=== PATIENT | female | born 1965 | race Caucasian/White ===

== ENCOUNTER 2018-01-14 08:06 | Inpatient (IN) | payer BC ==
[2018-01-14] VITALS (7 sets, daily range): BP systolic 104–135; BP diastolic 46–64; PULSE 72–93; RESP 14–20; TEMP 96.9–97.9; O2SAT 95–100
[~2018-01-14] VITALS: Ht 167.6 cm; Wt 70.7 kg
[2018-01-14] MEDS ORDERED: SODIUM CHLOR 0.9% 1000 ML INJ 1,000 ML IV SCH (08:36)
--- NOTE | 2018-01-14 08:42 | PD ---
HPI Chief Complaint: abdominal pain Time Seen by Provider: 08:18 Travel History International Travel<30 days: No Contact w/Intl Traveler<30days: No History of Present Illness HPI Patient is a 52-year-old female with history of muscular dystrophy, anxiety as well as PTSD who presents the emergency room with complaints of nausea, vomiting , diarrhea and abdominal pain. Patient reports that she began not feeling well on Saturday, reports that she initially had nausea with vomiting. Patient reports that yesterday, she developed diarrhea. Patient reports that she has had multiple episodes of diarrhea all day. Patient reports that she has not been able to stop her nausea, vomiting and diarrhea. Patient reports that she is having moderate to diffuse abdominal pain. Reports that abdominal pain is nonspecific, reports that nothing is making her pain better or worse. Patient denies any recent antibiotics. reports that she is here visiting from [place]. denies any sick contacts. Reports that she did not eat anything abnormal from her baseline. Patient reports that she is extremely anxious at this time, reports that when she gets upset, she can stop her vomiting. Patient requests some anxiolytics as well as something for nausea and pain. PFSH Past Medical History Narrative Medical Patient with history of PTSD, muscular dystrophy Depression: Yes Past Surgical History Narrative Surgical Patient with history of sphincterotomy, hysterectomy, breast augmentation Social History Alcohol Use: No Tobacco Use: No Substance Use: No Allergies-Medications (Allergen,Severity, Reaction): Coded Allergies: aspirin (Verified Adverse Reaction, Intermediate, Nausea, 01/14/18) Reported Meds & Prescriptions Reported Meds & Active Scripts Active Reported Meloxicam 7.5 Mg Tab 7.5 Mg PO DAILY PRN Flexeril (Cyclobenzaprine HCl) 5 Mg Tab 5 Mg PO BID PRN Prazosin (Prazosin HCl) 2 Mg Cap 2 Mg PO HS PRN Wellbutrin Xl 24 HR (Bupropion HCl) 150 Mg Tab 150 Mg PO DAILY Estradiol 1 Mg Tab 2 Mg PO DAILY Duloxetine DR (Duloxetine HCl) 60 Mg Capdr 60 Mg PO DAILY Review of Systems General / Constitutional: No: Fever Eyes: No: Visual changes HENT: No: Headaches Cardiovascular: No: Chest Pain or Discomfort Respiratory: No: Shortness of Breath Gastrointestinal: Positive: Nausea, Vomiting, Diarrhea, Abdominal Pain Genitourinary: No: Dysuria Musculoskeletal: No: Pain Skin: No Rash Neurologic: No: Weakness Psychiatric: Positive: Anxiety, No: Depression Endocrine: No: Polydipsia Hematologic/Lymphatic: No: Easy Bruising Physical Exam Narrative GENERAL: Moderate distress SKIN: Focused skin assessment warm/dry. HEAD: Atraumatic. Normocephalic. EYES: Pupils equal and round. No scleral icterus. No injection or drainage. ENT: No nasal bleeding or discharge. Mucous membranes pink and moist. NECK: Trachea midline. No JVD. CARDIOVASCULAR: Regular rate and rhythm. No murmur appreciated. RESPIRATORY: No accessory muscle use. Clear to auscultation. Breath sounds equal bilaterally. GASTROINTESTINAL: Abdomen soft, diffuse tenderness, no peritoneal signs, nondistended. Hepatic and splenic margins not palpable. MUSCULOSKELETAL: No obvious deformities. No clubbing. No cyanosis. No edema. NEUROLOGICAL: Awake and alert. No obvious cranial nerve deficits. Motor grossly within normal limits. Normal speech. PSYCHIATRIC: Anxious mood and affect; insight and judgment normal. Data Data Last Documented VS Vital Signs Date Time Temp Pulse Resp B/P (MAP) Pulse Ox O2 Delivery O2 Flow Rate FiO2 01/14/18 09:35 84 14 135/61 (85) 100 Room Air 01/14/18 08:09 97.5 Orders Orders Complete Blood Count With Diff (01/14/18 08:23) Comprehensive Metabolic Panel (01/14/18 08:23) Lipase (01/14/18 08:23) Prothrombin Time / Inr (Pt) (01/14/18 08:23) Act Partial Throm Time (Ptt) (01/14/18 08:23) Urinalysis - C+S If Indicated (01/14/18 08:23) Ct Abd/Pel W Iv Contrast(Rout) (01/14/18 08:23) Iv Access Insert/Monitor (01/14/18 08:23) Ecg Monitoring (01/14/18 08:23) Oximetry (01/14/18 08:23) NPO (01/14/18 08:23) Chest, Single Ap (01/14/18 08:23) Morphine Inj (Morphine Inj) (01/14/18 08:45) Ondansetron Inj (Zofran Inj) (01/14/18 08:45) Sodium Chlor 0.9% 1000 Ml Inj (Ns 1000 M (01/14/18 08:36) Sodium Chloride 0.9% Flush (Ns Flush) (01/14/18 08:45) Lorazepam Inj (Ativan Inj) (01/14/18 08:45) Iohexol 350 Inj (Omnipaque 350 Inj) (01/14/18 09:30) Labs Laboratory Tests Test 01/14/18 08:30 White Blood Count 13.7 TH/MM3 Red Blood Count 4.67 MIL/MM3 Hemoglobin 14.8 GM/DL Hematocrit 42.2 % Mean Corpuscular Volume 90.4 FL Mean Corpuscular Hemoglobin 31.6 PG Mean Corpuscular Hemoglobin Concent 35.0 % Red Cell Distribution Width 13.8 % Platelet Count 297 TH/MM3 Mean Platelet Volume 8.8 FL Neutrophils (%) (Auto) 75.5 % Lymphocytes (%) (Auto) 12.3 % Monocytes (%) (Auto) 7.5 % Eosinophils (%) (Auto) 0.9 % Basophils (%) (Auto) 3.8 % Neutrophils # (Auto) 10.4 TH/MM3 Lymphocytes # (Auto) 1.7 TH/MM3 Monocytes # (Auto) 1.0 TH/MM3 Eosinophils # (Auto) 0.1 TH/MM3 Basophils # (Auto) 0.5 TH/MM3 CBC Comment DIFF FINAL Differential Comment Prothrombin Time 9.8 SEC Prothromb Time International Ratio 1.0 RATIO Activated Partial Thromboplast Time 25.8 SEC Blood Urea Nitrogen 19 MG/DL Creatinine 0.70 MG/DL Random Glucose 120 MG/DL Total Protein 8.6 GM/DL Albumin 4.2 GM/DL Calcium Level 10.1 MG/DL Alkaline Phosphatase 116 U/L Aspartate Amino Transf (AST/SGOT) 27 U/L Alanine Aminotransferase (ALT/SGPT) 71 U/L Total Bilirubin 0.5 MG/DL Sodium Level 136 MEQ/L Potassium Level 4.1 MEQ/L Chloride Level 100 MEQ/L Carbon Dioxide Level 30.7 MEQ/L Anion Gap 5 MEQ/L Estimat Glomerular Filtration Rate 88 ML/MIN Lipase 158 U/L [facility] Medical Decision Making Medical Screen Exam Complete: Yes Emergency Medical Condition: Yes Medical Record Reviewed: Yes Interpretation(s) Vital Signs Date Time Temp Pulse Resp B/P (MAP) Pulse Ox O2 Delivery O2 Flow Rate FiO2 01/14/18 08:09 97.5 72 17 114/59 (77) 100 Room Air Differential Diagnosis Gastritis, gastroenteritis, cholecystitis, appendicitis, colitis, electrolyte abnormality Narrative Course 52-year-old female who presents the emergency room with complaints of nausea, vomiting, abdominal pain which has been ongoing since Saturday. During the course of the patients emergency department visit, the patients history, examination, and differential diagnosis were reviewed with the patient. The patient was placed on a quality assurance monitor with oximetry and frequent blood pressure monitoring. The patient had an IV access obtained and blood work sent for analysis. The patient was initially provided IV fluids, IV Zofran, IV morphine for pain, Ativan for anxiety. The patients laboratory studies were reviewed and remarkable for CBC & BMP Diagram 01/14/18 08:30 Total Protein 8.6 H, Albumin 4.2, Calcium Level 10.1, Alkaline Phosphatase 116, Aspartate Amino Transf (AST/SGOT) 27, Alanine Aminotransferase (ALT/SGPT) 71 H, Total Bilirubin 0.5 0930: patient re-evaluated, patient reports that she is feeling much better at this time. Patient no longer nauseous and no longer vomiting. Abdomen was reevaluated, patient has increased tenderness to the right lower quadrant concerning for appendicitis. CT of the abdomen pelvis currently pending. Radiology studies were reviewed and remarkable for: Last Impressions Chest X-Ray 01/14/18822 Signed Impressions: Service Date/Time: Sunday, January 14, 2018 08:40 - CONCLUSION: 1. Increased lucency below the left hemidiaphragm may reflect air in the stomach. No definite free air on the right. Recommend dedicated upright view of the abdomen or CT examination if there is continued clinical concern. 2. No acute cardiopulmonary disease Forrest Borges MD Abdomen/Pelvis CT 01/14/18822 Signed Impressions: Service Date/Time: Sunday, January 14, 2018 09:21 - CONCLUSION: Dilation of the proximal small bowel with apparent transition in the right midabdomen. In the appropriate clinical setting, findings are characteristic of a partial small bowel obstruction. Irineo Orozco MD Patient with dilation of the proximal small bowel with apparent transition in the right midabdomen concerning for partial small bowel obstruction. Patient reports that she has been having abdominal issues for many years, reports that she either is constipated or has loose stools. Patient is not sure when she has last formed stools. 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 Last colonscopy was when she was 49 years old 0 she had 3 polyps removed at that time. Reports only history of hysterectomy. Plan to have patient admitted to the hospital for IV fluid hydration and for serial abdominal exams. Patient is agreeable to admission at this time. Case reviewed with Dr. Kirk who accepts pt to service Diagnosis Primary Impression: Partial small bowel obstruction Admitting Information Admitting Physician Requests: Admit Amalia Piña DO January 14, 2018 08:42
[2018-01-14 08:44] LABS: AUTOMATED NEUTROPHIL # 10.4 TH/MM3 (1.8-7.7); BASOPHIL # 0.5 TH/MM3 (0-0.2); BASOPHIL % 3.8 % (0.0-2.0); EOSINOPHIL # 0.1 TH/MM3 (0-0.4); EOSINOPHIL % 0.9 % (0.0-4.0); HEMATOCRIT 42.2 % (35.0-46.0); HEMOGLOBIN 14.8 GM/DL (11.6-15.3); LYMPH % 12.3 % (9.0-44.0); LYMPHOCYTE # 1.7 TH/MM3 (1.0-4.8); MEAN CELL VOLUME 90.4 FL (80.0-100.0); MEAN CORPUSCULAR HEMOGLOBIN 31.6 PG (27.0-34.0); MEAN PLATELET VOLUME 8.8 FL (7.0-11.0); MONO % 7.5 % (0.0-8.0); NEUT % 75.5 % (16.0-70.0); PLATELET COUNT 297 TH/MM3 (150-450); RED BLOOD COUNT 4.67 MIL/MM3 (4.00-5.30); RED CELL DISTRIBUTION WIDTH 13.8 % (11.6-17.2); WHITE BLOOD COUNT 13.7 TH/MM3 (4.0-11.0)
[2018-01-14] MEDS ORDERED: MORPHINE SULFATE 4 MG/ML INJ IV PUSH ONE (08:45)
[2018-01-14] MEDS ORDERED: ONDANSETRON HCL 4 MG/2 ML VIAL IVP ONE (08:45)
[2018-01-14] MEDS ORDERED: LORazepam 2 MG/ML VIAL IV PUSH ONE (08:45)
[2018-01-14] MEDS ORDERED: SODIUM CHLORIDE 0.9% FLUSH 10 ML FLUSH IV FLUSH PRN ×2 (08:45→11:15)
[2018-01-14 08:56] LABS: CHLORIDE 100 MEQ/L (98-107); SODIUM (NA) 136 MEQ/L (136-145)
--- NOTE | 2018-01-14 08:58 | RADRPT ---
EXAM DATE/TIME: 01/14/2018 08:40 [facility] COMPARISON: No previous studies available for comparison. INDICATIONS : Free air, nausea, vomiting abdominal pain. MEDICAL HISTORY : MS SURGICAL HISTORY : sphincterotomy ENCOUNTER: Initial ACUITY: 3 days PAIN SCORE: 8/10 LOCATION: Bilateral abdomen FINDINGS: A single view of the chest demonstrates the lungs to be symmetrically aerated without evidence of mas s, infiltrate or effusion. The cardiomediastinal contours are unremarkable. Osseous structures are intact. Increased lucency noted below the left hemidiaphragm. CONCLUSION: 1. Increased lucency below the left hemidiaphragm may reflect air in the stomach. No definite free ai r on the right. Recommend dedicated upright view of the abdomen or CT examination if there is continu ed clinical concern. 2. No acute cardiopulmonary disease Forrest Borges MD on January 14, 2018 at 8:55 Board Certified Radiologist. This report was verified electronically.
[2018-01-14 09:00] LABS: ALBUMIN 4.2 GM/DL (3.4-5.0); BICARBONATE 30.7 MEQ/L (21.0-32.0); BLOOD UREA NITROGEN 19 MG/DL (7-18); CALCIUM 10.1 MG/DL (8.5-10.1); GLUCOSE,RANDOM 120 MG/DL (74-106); PROTHROMBIN TIME - PATIENT 9.8 SEC (9.8-11.6)
[2018-01-14 09:03] LABS: ALT (GPT) 71 U/L (10-53); AST (GOT) 27 U/L (15-37); GLOMERULAR FILTRATION RATE 88 ML/MIN (>89)
[2018-01-14] MEDS ORDERED: BUPR150XL PO (09:04)
[2018-01-14] MEDS ORDERED: PRAZ2CAP PO (09:04)
[2018-01-14] MEDS ORDERED: CYCL5TAB PO (09:04)
[2018-01-14] MEDS ORDERED: MELO7.5T27 PO (09:04)
[2018-01-14] MEDS ORDERED: DULO1CAP3 PO (09:04)
[2018-01-14] MEDS ORDERED: ESTR1TAB PO (09:04)
[2018-01-14 09:05] LABS: TOTAL BILIRUBIN ADULT 0.5 MG/DL (0.2-1.0); TOTAL PROTEIN 8.6 GM/DL (6.4-8.2)
[2018-01-14 09:06] LABS: ALKALINE PHOSPHATASE 116 U/L (45-117)
[2018-01-14] MEDS ORDERED: IOHEXOL 350 MG/ML 10 ML VIAL (for RAD DIAG) IVCONTRAST ONE (09:30)
--- NOTE | 2018-01-14 09:55 | RADRPT ---
EXAM DATE/TIME: 01/14/2018 09:21 [facility] COMPARISON: No previous studies available for comparison. INDICATIONS : Nausea, vomiting and diarrhea with diffuse abdominal pain. IV CONTRAST: 95 cc Omnipaque 350 (iohexol) IV ORAL CONTRAST: No oral contrast ingested. RADIATION DOSE: 10.85 CTDIvol (mGy) MEDICAL HISTORY : None SURGICAL HISTORY : Hysterectomy. ENCOUNTER: Initial ACUITY: 3 days PAIN SCALE: 5/10 LOCATION: pelvis abdomen TECHNIQUE: Volumetric scanning of the abdomen and pelvis was performed. Using automated exposure control and ad justment of the mA and/or kV according to patient size, radiation dose was kept as low as reasonably achievable to obtain optimal diagnostic quality images. DICOM format image data is available electro nically for review and comparison. FINDINGS: LOWER LUNGS: The visualized lower lungs are clear. LIVER: Homogeneous density without lesion. There is no dilation of the biliary tree. No calcified gallston es. SPLEEN: Normal size without lesion. PANCREAS: Within normal limits. KIDNEYS: Normal in size and shape. There is no mass, stone or hydronephrosis. ADRENAL GLANDS: Within normal limits. VASCULAR: There is no aortic aneurysm. BOWEL/MESENTERY: Proximal small bowel is significantly dilated. Transition in the right midabdomen with decompression of the ileum there is some stool identified in the colon. Appendix is identified and is radiographica lly intact. ABDOMINAL WALL: Within normal limits. RETROPERITONEUM: There is no lymphadenopathy. BLADDER: No wall thickening or mass. REPRODUCTIVE: Within normal limits. INGUINAL: There is no lymphadenopathy or hernia. MUSCULOSKELETAL: Within normal limits for patient age. CONCLUSION: Dilation of the proximal small bowel with apparent transition in the right midabdomen. In the ap propriate clinical setting, findings are characteristic of a partial small bowel obstruction. Irineo Orozco MD on January 14, 2018 at 9:45 Board Certified Radiologist. This report was verified electronically.
[2018-01-14 10:39] LABS: BILIRUBIN, URINE NEG (NEG); BLOOD, URINE TRACE (NEG); GLUCOSE,URINE NEG (NEG); KETONE, URINE NEG (NEG); NITRITE,URINE NEG (NEG); URINE COLOR YELLOW (YELLW/STRAW); URINE LEUKOCYTE ESTERASE NEG (NEG)
[2018-01-14 10:50] LABS: RBC, URINE 0-3 /hpf (0-3); SQUAMOUS EPITHELIAL CELL URINE 0-5 /hpf (0-5)
[2018-01-14] MEDS: SODIUM CHLOR 0.9% 1000 ML INJ 1,000 ML IV SCH ×2 (11:08→21:08)
--- NOTE | 2018-01-14 11:11 | HHI.HP ---
HPI Service [facility] Primary Care Physician Non-Staff Admission Diagnosis partial small bowel obstruction Diagnoses: Chief Complaint: Abdominal pain, N/V Travel History International Travel<30 Days: No Contact w/Intl Traveler <30 Da: No Traveled to Known Affected Are: No History of Present Illness The patient is a 52-year-old female with a past medical history of muscular dystrophy, depression and PTSD who presents the emergency room with complaints of nausea, vomiting, diarrhea and abdominal pain. The patient reports that she began feeling poorly on Saturday. She reports that she initially had nausea with vomiting. Patient reports that yesterday she developed diarrhea. Patient reports that she has had multiple episodes of diarrhea all day. Patient reports that she has not been able to stop her nausea, vomiting or diarrhea. Patient reports that she is having severe abdominal pain. The pt says that the abdominal pain is generalized throughout her stomach. Patient denies any recent antibiotics. She says that she is visiting from [place]. She denies any sick contacts. The pt said she felt better for a little while but is currently gagging constantly. She requests to be "knocked out" if an NG tube is to be inserted. Discussed with nursing. Review of Systems Except as stated in HPI: all other systems reviewed are Neg Past Family Social History Past Medical History PTSD Muscular dystrophy Depression Past Surgical History Sphincterotomy Hysterectomy Breast augmentation Allergies: Coded Allergies: aspirin (Verified Adverse Reaction, Intermediate, Nausea, 01/14/18) Family History Various cancers Social History The pt does not smoke. She has social alcohol use. Physical Exam Vital Signs Vital Signs Date Time Temp Pulse Resp B/P (MAP) Pulse Ox O2 Delivery O2 Flow Rate FiO2 01/14/18 10:30 82 14 104/46 (65) 98 Room Air 01/14/18 10:30 98 Room Air 01/14/18 09:35 84 14 135/61 (85) 100 Room Air 01/14/18 09:00 95 Room Air 01/14/18 08:55 14 01/14/18 08:09 97.5 72 17 114/59 (77) 100 Room Air Physical Exam GENERAL: Moderate distress, dry-heaving. SKIN: Focused skin assessment warm/dry. HEAD: Atraumatic. Normocephalic. EYES: Pupils equal and round. No scleral icterus. No injection or drainage. ENT: No nasal bleeding or discharge. Mucous membranes pink and moist. NECK: Trachea midline. No JVD. CARDIOVASCULAR: Regular rate and rhythm. No murmur appreciated. RESPIRATORY: No accessory muscle use. Clear to auscultation. Breath sounds equal bilaterally. GASTROINTESTINAL: Abdomen soft, diffuse tenderness, no peritoneal signs, nondistended. Hepatic and splenic margins not palpable. MUSCULOSKELETAL: No obvious deformities. No clubbing. No cyanosis. No edema. NEUROLOGICAL: Awake and alert. No obvious cranial nerve deficits. Motor grossly within normal limits. Normal speech. PSYCHIATRIC: Anxious mood and affect; insight and judgment normal. Laboratory Laboratory Tests Test 01/14/18 08:30 01/14/18 10:30 White Blood Count 13.7 Red Blood Count 4.67 Hemoglobin 14.8 Hematocrit 42.2 Mean Corpuscular Volume 90.4 Mean Corpuscular Hemoglobin 31.6 Mean Corpuscular Hemoglobin Concent 35.0 Red Cell Distribution Width 13.8 Platelet Count 297 Mean Platelet Volume 8.8 Neutrophils (%) (Auto) 75.5 Lymphocytes (%) (Auto) 12.3 Monocytes (%) (Auto) 7.5 Eosinophils (%) (Auto) 0.9 Basophils (%) (Auto) 3.8 Neutrophils # (Auto) 10.4 Lymphocytes # (Auto) 1.7 Monocytes # (Auto) 1.0 Eosinophils # (Auto) 0.1 Basophils # (Auto) 0.5 CBC Comment DIFF FINAL Differential Comment Prothrombin Time 9.8 Prothromb Time International Ratio 1.0 Activated Partial Thromboplast Time 25.8 Blood Urea Nitrogen 19 Creatinine 0.70 Random Glucose 120 Total Protein 8.6 Albumin 4.2 Calcium Level 10.1 Alkaline Phosphatase 116 Aspartate Amino Transf (AST/SGOT) 27 Alanine Aminotransferase (ALT/SGPT) 71 Total Bilirubin 0.5 Sodium Level 136 Potassium Level 4.1 Chloride Level 100 Carbon Dioxide Level 30.7 Anion Gap 5 Estimat Glomerular Filtration Rate 88 Lipase 158 Urine Collection Type CLEAN CATCH Urine Color YELLOW Urine Turbidity CLEAR Urine pH 8.0 Urine Specific [place] 1.010 Urine Protein NEG Urine Glucose (UA) NEG Urine Ketones NEG Urine Occult Blood TRACE Urine Nitrite NEG Urine Bilirubin NEG Urine Urobilinogen 0.2 Urine Leukocyte Esterase NEG Urine RBC 0-3 Urine Squamous Epithelial Cells 0-5 Microscopic Urinalysis Comment CULT NOT INDICATED Urine Collection Time 10:30 Result Diagram: 01/14/1882901/14/18829 Imaging Last Impressions Chest X-Ray 01/14/18822 Signed Impressions: Service Date/Time: Sunday, January 14, 2018 08:40 - CONCLUSION: 1. Increased lucency below the left hemidiaphragm may reflect air in the stomach. No definite free air on the right. Recommend dedicated upright view of the abdomen or CT examination if there is continued clinical concern. 2. No acute cardiopulmonary disease Forrest Borges MD Abdomen/Pelvis CT 01/14/18822 Signed Impressions: Service Date/Time: Sunday, January 14, 2018 09:21 - CONCLUSION: Dilation of the proximal small bowel with apparent transition in the right midabdomen. In the appropriate clinical setting, findings are characteristic of a partial small bowel obstruction. Irineo Orozco MD Caprini VTE Risk Assessment Caprini VTE Risk Assessment: Mod/High Risk (score >= 2) Caprini Risk Assessment Model Point Value = 1 Point Value = 2 Point Value = 3 Point Value = 5 Age 41-60 Minor surgery BMI > 25 kg/m2 Swollen legs Varicose veins or History of unexplained or recurrent spontaneous Oral contraceptives or hormone replacement Sepsis (< 1 month) Serious lung disease, including pneumonia (< 1 month) Abnormal pulmonary function Acute myocardial infarction Congestive heart failure (< 1 month) History of inflammatory bowel disease Medical patient at bed rest Age 61-74 Arthroscopic surgery Major open surgery (> 45 min) Laparoscopic surgery (> 45 min) Malignancy Confined to bed (> 72 hours) Immobilizing plaster cast Central venous access Age >= 75 History of VTE Family history of VTE Factor V Leiden Prothrombin [id number] Lupus anticoagulant Anticardiolipin antibodies Elevated serum homocysteine Heparin-induced thrombocytopenia Other congenital or acquired thrombophilia Stroke (< 1 month) Elective arthroplasty Hip, pelvis, or leg fracture Acute spinal cord injury (< 1 month) Prophylaxis Regimen Total Risk Factor Score Risk Level Prophylaxis Regimen 0-1 Low Early ambulation 2 Moderate Order ONE of the following: *Sequential Compression Device (SCD) *Heparin 5000 units SQ BID 3-4 Higher Order ONE of the following medications: *Heparin 5000 units SQ TID *Enoxaparin/Lovenox 40 mg SQ daily (WT < 150 kg, CrCl > 30 mL/min) *Enoxaparin/Lovenox 30 mg SQ daily (WT < 150 kg, CrCl > 10-29 mL/min) *Enoxaparin/Lovenox 30 mg SQ BID (WT < 150 kg, CrCl > 30 mL/min) AND/OR *Sequential Compression Device (SCD) 5 or more Highest Order ONE of the following medications: *Heparin 5000 units SQ TID (Preferred with Epidurals) *Enoxaparin/Lovenox 40 mg SQ daily (WT < 150 kg, CrCl > 30 mL/min) *Enoxaparin/Lovenox 30 mg SQ daily (WT < 150 kg, CrCl > 10-29 mL/min) *Enoxaparin/Lovenox 30 mg SQ BID (WT < 150 kg, CrCl > 30 mL/min) AND *Sequential Compression Device (SCD) Assessment and Plan Assessment and Plan Acute small bowel obstruction The pt presents with severe abdominal pain, N/V and diarrhea. CT of the abdomen shows: Dilation of the proximal small bowel with apparent transition in the right midabdomen. - NPO with IVFs. - IV antiemetics and pain medications as needed. - NG tube to be inserted. - general surgery consult requested. Leukocytosis Likely reactive to above. - treatment as above. - follow CBC. PTSD The pt endorses high anxiety. - IV Ativan as needed for anxiety and prior to procedures. Hyperglycemia Likely reactive. - follow BMP. PPx: SCDs Discussed Condition With Pt, nurse Physician Certification 2 Midnight Certification Type: Admission for Inpatient Services Order for Inpatient Services The services are ordered in accordance with Medicare regulations or non- Medicare payer requirements, as applicable. In the case of services not specified as inpatient-only, they are appropriately provided as inpatient services in accordance with the 2-midnight benchmark. Estimated LOS (days): 3 days is the estimated time the patient will need to remain in the hospital, assuming treatment plan goals are met and no additional complications. Post-Hospital Plan: Not yet determined João Choudhury DO January 14, 2018 11:11
[2018-01-14] MEDS ORDERED: NALOXONE HCL 0.4 MG/ML AMP IV PUSH PRN (11:15)
[2018-01-14] MEDS: ESTRADIOL 1 MG TAB PO SCH (11:15)
[2018-01-14] MEDS ORDERED: ACETAMINOPHEN 325 MG TAB PO PRN ×2 (11:15)
[2018-01-14] MEDS: DULoxetine HCl DR 60 MG CAP PO SCH (12:49)
[2018-01-14] MEDS: buPROPion HCL 150 MG SUSTAINED RELEASE TAB PO SCH (12:49)
[2018-01-14] MEDS: ONDANSETRON HCL 4 MG/2 ML VIAL IVP PRN (12:54)
[2018-01-14] MEDS: MORPHINE SULFATE 4 MG/ML INJ IV PUSH PRN ×2 (13:47→20:04)
[2018-01-14] MEDS ORDERED: METOCLOPRAMIDE HCL 10 MG/2 ML VIAL IV PUSH ONE (14:15)
[2018-01-14] MEDS ORDERED: PROCHLORPERAZINE INJ 10 MG/2 ML VIAL IV PUSH PRN (14:15)
[2018-01-14] MEDS: HYDROmorphone HCL PF 2 MG/ML VIAL IV PUSH PRN (14:18)
[2018-01-14] MEDS: LORazepam 2 MG/ML VIAL IV PUSH PRN ×2 (14:22→20:11)
[2018-01-14] MEDS ORDERED: PHENOL 1.4% SOLN 180 ML BTL OROPHARYNG PRN (17:30)
--- NOTE | 2018-01-14 17:50 | PD.CONS ---
cc: João Brunson MD [facility] Service General Surgery Consult Requested By Dr. Choudhury Reason for Consult Small bowel obstruction Primary Care Physician Non-Staff History of Present Illness This is a 52 year old female with a past medical history of muscular dystropy, depression and PTSD. She presents to the ED today with complains of nausea, vomiting, diarrhea and abdominal pain that began on Saturday. She traveled to [place] from [place], [place] about three weeks ago to visit her son and daughter in law. She denies any known sick contacts. A CT abdomen/pelvis was obtained which shows dilation of the proximal small bowel with apparent transition point in the RIGHT midabdomen. She does have a mildly elevated WBC. Her other labs a essentially unremarkable. Her urinalysis is clean. Her last colonoscopy was last year and was negative. A General Surgery consultation has been requested. Review of Systems Constitutional: COMPLAINS OF: Fatigue, Change in appetite, DENIES: Chills Endocrine: DENIES: Polydipsia, Polyuria, Polyphagia Eyes: DENIES: Diplopia, Eye inflammation Ears, nose, mouth, throat: DENIES: Hearing loss, Vertigo Respiratory: DENIES: Cough, Snoring Cardiovascular: DENIES: Palpitations Gastrointestinal: COMPLAINS OF: Abdominal pain, Diarrhea, Nausea, Vomiting, DENIES: Constipation Genitourinary: DENIES: Urinary frequency, Urgency Musculoskeletal: DENIES: Joint pain Integumentary: DENIES: Abnormal pigmentation Hematologic/lymphatic: DENIES: Bruising Immunologic/allergic: DENIES: Eczema Neurologic: DENIES: Abnormal gait, Headache Psychiatric: DENIES: Confusion, Mood changes, Depression Past Family Social History Past Medical History Muscular dystrophy Depression PTSD Past Surgical History Sphincterotomy due to scar tissue secondary to trauma as a child Vaginal hysterectomy Breast augmentation Reported Medications Flexeril Prazosin Meloxicam Wellbutrin Duloxetine Estradiol Allergies: Coded Allergies: aspirin (Verified Adverse Reaction, Intermediate, Nausea, 01/14/18) Active Ordered Medications Current Medications Medications (Trade) Dose Ordered Sig/Estiven Route Start Time Stop Time Status Last Admin (Wellbutrin Sr) 150 mg DAILY PO 01/14/18 12:00 01/14/18 12:49 (Cymbalta Dr) 60 mg DAILY PO 01/14/18 11:15 01/14/18 12:49 (Estradiol) 2 mg DAILY PO 01/14/18 11:15 Sodium Chloride 1,000 ml @ 100 mls/hr Q10H IV 01/14/18 11:08 01/14/18 11:08 (NS Flush) 2 ml UNSCH PRN IV FLUSH 01/14/18 11:15 (NS Flush) 2 ml BID IV FLUSH 01/14/18 21:00 (Tylenol) 650 mg Q4H PRN PO 01/14/18 11:15 (Zofran Inj) 4 mg Q6H PRN IVP 01/14/18 11:15 01/14/18 12:54 (Tylenol) 650 mg Q6H PRN PO 01/14/18 11:15 (Narcan Inj) 0.4 mg UNSCH PRN IV PUSH 01/14/18 11:15 (Maryana-Colace) 1 tab BID PO 01/14/18 21:00 (Morphine Inj) 2 mg Q4H PRN IV PUSH 01/14/18 13:45 01/14/18 13:47 (Dilaudid Pf Inj) 1 mg Q4H PRN IV PUSH 01/14/18 14:15 01/14/18 14:18 (Compazine Inj) 10 mg Q4H PRN IV PUSH 01/14/18 14:15 (Ativan Inj) 1 mg Q4H PRN IV PUSH 01/14/18 14:15 01/14/18 14:22 Family History Noncontributory Social History Denies tobacco use +ETOH use---socially; not daily Denies illicit drug use She is visiting [place] to see her son and [id number]. She is [place]. Physical Exam Vital Signs Vital Signs Date Time Temp Pulse Resp B/P (MAP) Pulse Ox O2 Delivery O2 Flow Rate FiO2 01/14/18 12:00 97.5 76 16 131/64 (86) 96 01/14/18 11:15 01/14/18 10:30 82 14 104/46 (65) 98 Room Air 01/14/18 10:30 98 Room Air 01/14/18 09:35 84 14 135/61 (85) 100 Room Air 01/14/18 09:00 95 Room Air 01/14/18 08:55 14 01/14/18 08:09 97.5 72 17 114/59 (77) 100 Room Air Physical Exam GENERAL: Resting in bed; in mild discomfortable from NGT placement. SKIN: Warm and dry. HEAD: Atraumatic. Normocephalic. EYES: Pupils equal and round. No scleral icterus. No injection or drainage. ENT: No nasal bleeding or discharge. Mucous membranes pink and moist. NECK: Trachea midline. CARDIOVASCULAR: Regular rate and rhythm. RESPIRATORY: No accessory muscle use. Clear to auscultation. Breath sounds equal bilaterally. GASTROINTESTINAL: Abdomen soft, distended; tender throughout but greatest in the RUQ and LUQ. No visible scars or hernias. MUSCULOSKELETAL: Extremities without clubbing, cyanosis, or edema. No obvious deformities. NEUROLOGICAL: Awake and alert. No obvious cranial nerve deficits. Motor grossly within normal limits. Five out of 5 muscle strength in the arms and legs. Normal speech. PSYCHIATRIC: Appropriate mood and affect; insight and judgment normal. Laboratory Laboratory Tests Test 01/14/18 08:30 01/14/18 10:30 White Blood Count 13.7 Red Blood Count 4.67 Hemoglobin 14.8 Hematocrit 42.2 Mean Corpuscular Volume 90.4 Mean Corpuscular Hemoglobin 31.6 Mean Corpuscular Hemoglobin Concent 35.0 Red Cell Distribution Width 13.8 Platelet Count 297 Mean Platelet Volume 8.8 Neutrophils (%) (Auto) 75.5 Lymphocytes (%) (Auto) 12.3 Monocytes (%) (Auto) 7.5 Eosinophils (%) (Auto) 0.9 Basophils (%) (Auto) 3.8 Neutrophils # (Auto) 10.4 Lymphocytes # (Auto) 1.7 Monocytes # (Auto) 1.0 Eosinophils # (Auto) 0.1 Basophils # (Auto) 0.5 CBC Comment DIFF FINAL Differential Comment Prothrombin Time 9.8 Prothromb Time International Ratio 1.0 Activated Partial Thromboplast Time 25.8 Blood Urea Nitrogen 19 Creatinine 0.70 Random Glucose 120 Total Protein 8.6 Albumin 4.2 Calcium Level 10.1 Alkaline Phosphatase 116 Aspartate Amino Transf (AST/SGOT) 27 Alanine Aminotransferase (ALT/SGPT) 71 Total Bilirubin 0.5 Sodium Level 136 Potassium Level 4.1 Chloride Level 100 Carbon Dioxide Level 30.7 Anion Gap 5 Estimat Glomerular Filtration Rate 88 Lipase 158 Urine Collection Type CLEAN CATCH Urine Color YELLOW Urine Turbidity CLEAR Urine pH 8.0 Urine Specific [place] 1.010 Urine Protein NEG Urine Glucose (UA) NEG Urine Ketones NEG Urine Occult Blood TRACE Urine Nitrite NEG Urine Bilirubin NEG Urine Urobilinogen 0.2 Urine Leukocyte Esterase NEG Urine RBC 0-3 Urine Squamous Epithelial Cells 0-5 Microscopic Urinalysis Comment CULT NOT INDICATED Urine Collection Time 10:30 Result Diagram: 01/14/1882901/14/18829 Imaging Last 48 hours Impressions Chest X-Ray 01/14/18822 Signed Impressions: Service Date/Time: Sunday, January 14, 2018 08:40 - CONCLUSION: 1. Increased lucency below the left hemidiaphragm may reflect air in the stomach. No definite free air on the right. Recommend dedicated upright view of the abdomen or CT examination if there is continued clinical concern. 2. No acute cardiopulmonary disease Forrest Borges MD Abdomen/Pelvis CT 01/14/18822 Signed Impressions: Service Date/Time: Sunday, January 14, 2018 09:21 - CONCLUSION: Dilation of the proximal small bowel with apparent transition in the right midabdomen. In the appropriate clinical setting, findings are characteristic of a partial small bowel obstruction. Irineo Orozco MD Assessment and Plan Assessment and Plan 52 year old female with abdominal pain/nausea/vomiting/diarrhea; SBO on CT scan -NPO -NGT to [facility] in AM -IVF -Continue with abdominal exams -Transfer patient to the [facility] for possible OR tomorrow -Will evaluate early tomorrow and decide on continuing non operative treatment vs operative treatment -Thank you for this consult; We will continue to follow Attending Note - Dr. Brunson Diffusely tender abdomen. Severe abdominal pain with signs/imaging consistent with SBO I am concerned about closed loop or internal hernia causing issues; will need to monitor closely. Likely transfer to [facility] for planned diagnostic laparoscopy/lap lysis adhesions/bowel resection Discussed with patient and family; they are in agreement. The exam, history, and the medical decision-making described in the above note were completed with the assistance of the mid-level provider. I reviewed and agree with the findings presented. I attest that I had a [id number] encounter with the patient on the same day, and personally performed and documented my assessment and findings in the medical record. Discussed Condition With Dr. Boy Maxwell RN Ms. De La Cruz + family at bedside Sunshine TurkP/Carbon Paste Mixer Operator BALLET MASTER/MISTRESS January 14, 2018 17:49 João Brunson MD January 15, 2018 09:53
[2018-01-14] MEDS: DOCUSATE SODIUM 50 MG/SENNA 8.6 MG TAB PO SCH (20:04)
[2018-01-14] MEDS: SODIUM CHLORIDE 0.9% FLUSH 10 ML FLUSH IV FLUSH SCH (20:04)
[2018-01-15] VITALS: BP 104/53; PULSE 81; RESP 18; TEMP 97.8; O2SAT 95
[2018-01-15] MEDS: MORPHINE SULFATE 4 MG/ML INJ IV PUSH PRN (00:13)
[2018-01-15] MEDS: LORazepam 2 MG/ML VIAL IV PUSH PRN ×3 (00:13→23:30)
--- NOTE | 2018-01-15 06:10 | RADRPT ---
EXAM DATE/TIME: 01/15/2018 05:38 [place] COMPARISON: No previous studies available for comparison. INDICATIONS : Evaluate for ileus. MEDICAL HISTORY : None. SURGICAL HISTORY : Hysterectomy. ENCOUNTER: Subsequent ACUITY: 2 days PAIN SCORE: Non-responsive. LOCATION: abdomen, all quadrants. FINDINGS: Supine view of the abdomen was performed. The abdominal bowel gas pattern is normal. No abnormal ma sses, calcifications, or organomegaly is seen. The osseous structures are unremarkable. CONCLUSION: Normal examination. NG tube enters the stomach Charlie Haider MD on January 15, 2018 at 6:09 Board Certified Radiologist. This report was verified electronically.
[2018-01-15] MEDS: HYDROmorphone HCL PF 2 MG/ML VIAL IV PUSH PRN ×3 (06:29→20:11)
[2018-01-15] MEDS: SODIUM CHLOR 0.9% 1000 ML INJ 1,000 ML IV SCH ×2 (07:08→17:08)
[2018-01-15] MEDS ORDERED: METOPROLOL TARTRATE 25 MG TAB PO PRN (07:30)
[2018-01-15] MEDS ORDERED: LACTATED RINGER'S 1000 ML IV PRN (07:30)
[2018-01-15] MEDS ORDERED: CHLORHEXIDINE GLUCONATE 2 % 1 PACK (2 CLOTHS) TOPICAL PRN (07:30)
[2018-01-15] MEDS ORDERED: INSULIN HUMAN REGULAR 1,000 UNITS/10 ML VIAL SQ PRN (07:30)
[2018-01-15] MEDS ORDERED: POVIDONE IODINE 5% (ANTISEPSIS KIT) 4 APPLICATIONS EACH NARE PRN (07:30)
[2018-01-15] MEDS ORDERED: DO NOT ADM ANY ANTICOAGULANT DRUGS PRN ×2 (07:30→15:00)
[2018-01-15] MEDS ORDERED: SODIUM CHLORID 0.9% 500 ML IV PRN (07:30)
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
[2018-01-15 08:00] VITALS: BP 133/69; PULSE 82; RESP 18; TEMP 98.1; O2SAT 93
[2018-01-15] MEDS: ONDANSETRON HCL 4 MG/2 ML VIAL IVP PRN (08:21)
[2018-01-15] MEDS: ESTRADIOL 1 MG TAB PO SCH (08:23)
[2018-01-15] MEDS: DULoxetine HCl DR 60 MG CAP PO SCH (08:23)
[2018-01-15] MEDS: DOCUSATE SODIUM 50 MG/SENNA 8.6 MG TAB PO SCH ×2 (08:24→20:14)
[2018-01-15] MEDS: buPROPion HCL 150 MG SUSTAINED RELEASE TAB PO SCH (08:24)
[2018-01-15] MEDS: SODIUM CHLORIDE 0.9% FLUSH 10 ML FLUSH IV FLUSH SCH ×2 (08:27→20:14)
--- NOTE | 2018-01-15 09:11 | EKG ---
Date Performed: 01/15/2018 Time Performed: 05:50:42 PTAGE: 52 years EKG: Sinus rhythm rSr'(V1) - probable normal variant Extensive ST-T changes are nonspecific Borderline ECG NO PREVIOUS TRACING DOCTOR: Charlie Yousif Interpretating Date/Time 01/15/2018 09:09:39
--- NOTE | 2018-01-15 09:49 | HHI.PR ---
Subjective Subjective Notes Still uncomfortable today; no flatus Objective Vitals/I&O Vital Signs Date Time Temp Pulse Resp B/P (MAP) Pulse Ox O2 Delivery O2 Flow Rate FiO2 01/15/18 08:00 98.1 82 18 133/69 (90) 93 01/14/18 10:30 Room Air Labs Laboratory Tests Test 01/14/18 10:30 Urine Collection Type CLEAN CATCH Urine Color YELLOW Urine Turbidity CLEAR Urine pH 8.0 Urine Specific [place] 1.010 Urine Protein NEG Urine Glucose (UA) NEG Urine Ketones NEG Urine Occult Blood TRACE Urine Nitrite NEG Urine Bilirubin NEG Urine Urobilinogen 0.2 Urine Leukocyte Esterase NEG Urine RBC 0-3 Urine Squamous Epithelial Cells 0-5 Microscopic Urinalysis Comment CULT NOT INDICATED Urine Collection Time 10:30 Radiology Last 48 hours Impressions Chest X-Ray 01/14/18822 Signed Impressions: Service Date/Time: Sunday, January 14, 2018 08:40 - CONCLUSION: 1. Increased lucency below the left hemidiaphragm may reflect air in the stomach. No definite free air on the right. Recommend dedicated upright view of the abdomen or CT examination if there is continued clinical concern. 2. No acute cardiopulmonary disease Forrest Borges MD Abdomen/Pelvis CT 01/14/18822 Signed Impressions: Service Date/Time: Sunday, January 14, 2018 09:21 - CONCLUSION: Dilation of the proximal small bowel with apparent transition in the right midabdomen. In the appropriate clinical setting, findings are characteristic of a partial small bowel obstruction. Irineo Orozco MD Abdomen: Other (Mildly distended; less painful) A/P Assessment and Plan Continued SBO, unclear etiology For diagnostic laparoscopy, possible lap lysis of adhesions, possible small bowel resection. GAR discussed with patient and daughter; they vocalize understanding and agree to proceed. João Brunson MD January 15, 2018 09:49
[2018-01-15] MEDS: PANTOPRAZOLE SODIUM 40 MG VIAL IV PUSH SCH (10:25)
[2018-01-15] MEDS ORDERED: LIDOCAINE HCL 1% PF 5 ML SYRINGE OTHER ONE (12:00)
[2018-01-15] MEDS ORDERED: LACTATED RINGER'S 1000 ML INJ 1,000 ML IV ONE (12:00)
[2018-01-15] MEDS ORDERED: PROPOFOL 200 MG/20 ML AMP IV ONE (12:00)
[2018-01-15] MEDS ORDERED: PHENYLEPH/NS 1000 MCG/10 ML SYR IV ONE (12:00)
[2018-01-15] MEDS ORDERED: ceFAZolin INJ 1,000 MG VIAL IV ONE ×2 (12:00→14:42)
[2018-01-15] MEDS ORDERED: ROCURONIUM INJ 50 MG/5 ML SYRINGE IV PUSH ONE (12:00)
[2018-01-15] MEDS ORDERED: ONDANSETRON HCL 4 MG/2 ML VIAL IV PUSH ONE (12:00)
[2018-01-15] MEDS ORDERED: DEXAMETHASONE SOD PHOS 4 MG/ML VIAL IV ONE (12:00)
[2018-01-15] MEDS ORDERED: KETOROLAC TROMETHAMINE 30 MG/ML (IVP) VIAL IV PUSH ONE (12:00)
[2018-01-15] MEDS ORDERED: MIDAZOLAM HCL 5 MG/5 ML VIAL ONE (13:12)
[2018-01-15] MEDS ORDERED: fentaNYL CITRATE 250 MCG/5 ML AMP ONE (13:12)
[2018-01-15] MEDS ORDERED: SCOPOLAMINE 1.5 MG PATCH ONE (13:17)
[2018-01-15] MEDS ORDERED: BUPIVACAINE/EPINEPHRINE 0.75% PF 30 ML VIAL ONE (13:19)
[2018-01-15] MEDS ORDERED: SUGAMMADEX SODIUM 200 MG/2 ML VIAL IV PUSH ONE (13:21)
[2018-01-15] MEDS ORDERED: metroNIDAZOLE 500 MG INJ 100 ML IV ONE (14:16)
[2018-01-15] MEDS ORDERED: FLUMAZENIL 1 MG/10 ML VIAL ONE (15:09)
--- NOTE | 2018-01-15 15:12 | HHI.PR ---
cc: João Brunson MD Immediate Post Op Note Procedure Date: January 15, 2018 Pre Op Diagnosis: Small bowel obstruction Post Op Diagnosis: Same, secondary to adhesions Surgeon: João Brunson Parts Salvager(s): Franchesca Richter CFA Procedure: Diagnostic laparoscopy Laparoscopic lysis of adhesions Laparoscopic appendectomy Findings: Adhesion mid-jejunum, released on exploration; distal ileal adhesions adjacent to appendix Additional Information: Adhesions in RLQ near pelvis likely secondary to previous hysterectomy Complications: None Specimen(s) removed: Appendix to pathology Estimated blood loss: 10 ml Anesthesia: General Drains: None IVF (1000 ml) Patient to: PACU Patient Condition: Good Date/Time of Procedure: SEE SURGICAL CARE RECORD João rBunson MD January 15, 2018 15:12
[2018-01-15 16:45] VITALS: BP 135/61; PULSE 88; RESP 19; TEMP 98.1; O2SAT 94
[2018-01-15 17:24] LABS: AUTOMATED NEUTROPHIL # 7.1 TH/MM3 (1.8-7.7); BASOPHIL % 0.1 % (0.0-2.0); EOSINOPHIL % 0.6 % (0.0-4.0); HEMATOCRIT 34.2 % (35.0-46.0); HEMOGLOBIN 11.7 GM/DL (11.6-15.3); LYMPH % 8.1 % (9.0-44.0); LYMPHOCYTE # 0.6 TH/MM3 (1.0-4.8); MEAN CELL VOLUME 91.9 FL (80.0-100.0); MEAN CORPUSCULAR HEMOGLOBIN 31.4 PG (27.0-34.0); MEAN CORPUSCULAR HGB CONC 34.2 % (32.0-36.0); MEAN PLATELET VOLUME 8.3 FL (7.0-11.0); MONO % 2.8 % (0.0-8.0); MONOCYTE # 0.2 TH/MM3 (0-0.9); NEUT % 88.4 % (16.0-70.0); PLATELET COUNT 166 TH/MM3 (150-450); RED BLOOD COUNT 3.73 MIL/MM3 (4.00-5.30)
[2018-01-15 17:46] LABS: ALBUMIN 3.1 GM/DL (3.4-5.0); ALT (GPT) 40 U/L (10-53); AST (GOT) 20 U/L (15-37); BICARBONATE 26.3 MEQ/L (21.0-32.0); BLOOD UREA NITROGEN 14 MG/DL (7-18); CALCIUM 7.7 MG/DL (8.5-10.1); CHLORIDE 108 MEQ/L (98-107); CREATININE 0.55 MG/DL (0.50-1.00); GLOMERULAR FILTRATION RATE 116 ML/MIN (>89); GLUCOSE,RANDOM 94 MG/DL (74-106); SODIUM (NA) 141 MEQ/L (136-145)
[2018-01-15 17:48] LABS: ALKALINE PHOSPHATASE 76 U/L (45-117); TOTAL BILIRUBIN ADULT 0.3 MG/DL (0.2-1.0); TOTAL PROTEIN 6.2 GM/DL (6.4-8.2)
[2018-01-15 20:00] VITALS: BP 128/60; PULSE 81; RESP 18; TEMP 97.9; O2SAT 94
[2018-01-16] VITALS (7 sets, daily range): BP systolic 104–139; BP diastolic 51–63; PULSE 81–94; RESP 17–19; TEMP 97.4–98.2; O2SAT 92–98
[2018-01-16] MEDS: HYDROmorphone HCL PF 2 MG/ML VIAL IV PUSH PRN ×2 (00:24→05:00)
[2018-01-16] MEDS: SODIUM CHLOR 0.9% 1000 ML INJ 1,000 ML IV SCH ×3 (03:08→20:13)
--- NOTE | 2018-01-16 07:37 | HHI.PR ---
Subjective Remarks awake and alert passing some flatus up and ambulating already and voiding complains of lower abdominal discomfort states history of colonic polyps - Objective Vitals Vital Signs Date Time Temp Pulse Resp B/P (MAP) Pulse Ox O2 Delivery O2 Flow Rate FiO2 01/16/18 04:00 97.6 83 18 139/63 (88) 98 01/16/18 00:00 98.1 94 18 108/59 (75) 92 01/15/18 20:00 97.9 81 18 128/60 (82) 94 01/15/18 16:45 98.1 88 19 135/61 (85) 94 01/15/18 16:00 98.5 92 18 122/60 (80) 95 Nasal Cannula 2 01/15/18 15:45 94 20 126/59 (81) 95 Nasal Cannula 2 01/15/18 15:30 91 13 126/62 (83) 95 Nasal Cannula 2 01/15/18 15:17 98.3 106 12 139/63 (88) 95 Nasal Cannula 2 01/15/18 08:00 98.1 82 18 133/69 (90) 93 I/O 01/15/18 01/15/18 01/15/18 01/16/18 01/16/18 01/16/18 07:00 15:00 23:00 07:00 15:00 23:00 Intake Total 0 ml 100 ml 1000 ml Output Total 75 ml 235 ml Balance -75 ml 100 ml 765 ml Intake Oral 0 ml 0 ml IV Total 100 ml Other 1000 ml Output Urine Total 225 ml Gastric Drainage Total 75 ml Estimated Blood Loss 10 ml # Voids 2 2 # Bowel Movements 0 0 Result Diagram: 01/15/18 1639 01/15/18 1639 Imaging Last Impressions Abdomen X-Ray 01/15/18 0600 Signed Impressions: Service Date/Time: Monday, January 15, 2018 05:38 - CONCLUSION: Normal examination. NG tube enters the stomach Charlie Haider MD Chest X-Ray 01/14/18 0823 Signed Impressions: Service Date/Time: Sunday, January 14, 2018 08:40 - CONCLUSION: 1. Increased lucency below the left hemidiaphragm may reflect air in the stomach. No definite free air on the right. Recommend dedicated upright view of the abdomen or CT examination if there is continued clinical concern. 2. No acute cardiopulmonary disease Forrest Bozorgmanesh, MD Abdomen/Pelvis CT 01/14/18 0823 Signed Impressions: Service Date/Time: Sunday, January 14, 2018 09:21 - CONCLUSION: Dilation of the proximal small bowel with apparent transition in the right midabdomen. In the appropriate clinical setting, findings are characteristic of a partial small bowel obstruction. Irineo Orozco MD Objective Remarks awake and alert, no acute distress anicteric no rales, no wheezes regular rhythm abdomen- soft, + mild tenderness lower abdomen, + bowel sounds extremities no edema neuro exam- non focal Procedures 01/15 Diagnostic laparoscopy Laparoscopic lysis of adhesions Laparoscopic appendectomy A/P Assessment and Plan 52 years old female S/P laparoscopic GEOFF 01/15 for SBO - NPO with IVFs. - general surgery service ff- diet per GS - ff BMP Leukocytosis- Improved Likely reactive to above. History of Muscular dystrophy- highly functional and independent with all ADLs PTSD - IV Ativan as needed for anxiety and prior to procedures. Hyperglycemia Likely reactive. Incentive spirometry hourly encourage ambulation Margaux Camilo MD January 16, 2018 07:37
[2018-01-16] MEDS: DOCUSATE SODIUM 50 MG/SENNA 8.6 MG TAB PO SCH ×2 (08:07→20:09)
[2018-01-16] MEDS: DULoxetine HCl DR 60 MG CAP PO SCH (08:07)
[2018-01-16] MEDS: buPROPion HCL 150 MG SUSTAINED RELEASE TAB PO SCH (08:08)
[2018-01-16] MEDS: SODIUM CHLORIDE 0.9% FLUSH 10 ML FLUSH IV FLUSH SCH ×2 (08:08→20:06)
[2018-01-16] MEDS: ESTRADIOL 1 MG TAB PO SCH (09:00)
[2018-01-16 09:08] LABS: BICARBONATE 27.6 MEQ/L (21.0-32.0); CREATININE 0.57 MG/DL (0.50-1.00)
[2018-01-16] MEDS: PANTOPRAZOLE SODIUM 40 MG VIAL IV PUSH SCH (11:50)
[2018-01-16] MEDS ORDERED: MORPHINE SULFATE 4 MG/ML INJ IV PUSH PRN (12:15)
[2018-01-16] MEDS: ACETAMINOPHEN/HYDROcodone 325 MG/5 MG TAB PO PRN ×2 (15:49→20:09)
--- NOTE | 2018-01-16 16:22 | HHI.PR ---
Subjective Subjective Notes Resting in bed "feeling loopy" from pain medications Thirsty Objective Vitals/I&O Vital Signs Date Time Temp Pulse Resp B/P (MAP) Pulse Ox O2 Delivery O2 Flow Rate FiO2 01/16/18 12:00 98.2 84 18 116/59 (78) 94 01/15/18 16:00 Nasal Cannula 2 Labs Laboratory Tests Test 01/15/18 16:39 01/16/18 08:15 White Blood Count 8.0 Red Blood Count 3.73 Hemoglobin 11.7 Hematocrit 34.2 Mean Corpuscular Volume 91.9 Mean Corpuscular Hemoglobin 31.4 Mean Corpuscular Hemoglobin Concent 34.2 Red Cell Distribution Width 14.0 Platelet Count 166 Mean Platelet Volume 8.3 Neutrophils (%) (Auto) 88.4 Lymphocytes (%) (Auto) 8.1 Monocytes (%) (Auto) 2.8 Eosinophils (%) (Auto) 0.6 Basophils (%) (Auto) 0.1 Neutrophils # (Auto) 7.1 Lymphocytes # (Auto) 0.6 Monocytes # (Auto) 0.2 Eosinophils # (Auto) 0.0 Basophils # (Auto) 0.0 CBC Comment DIFF FINAL Differential Comment Blood Urea Nitrogen 14 11 Creatinine 0.55 0.57 Random Glucose 94 90 Total Protein 6.2 Albumin 3.1 Calcium Level 7.7 8.0 Alkaline Phosphatase 76 Aspartate Amino Transf (AST/SGOT) 20 Alanine Aminotransferase (ALT/SGPT) 40 Total Bilirubin 0.3 Sodium Level 141 140 Potassium Level 3.9 3.6 Chloride Level 108 104 Carbon Dioxide Level 26.3 27.6 Anion Gap 7 8 Estimat Glomerular Filtration Rate 116 111 Radiology Last 48 hours Impressions Chest X-Ray 01/14/18 0823 Signed Impressions: Service Date/Time: Sunday, January 14, 2018 08:40 - CONCLUSION: 1. Increased lucency below the left hemidiaphragm may reflect air in the stomach. No definite free air on the right. Recommend dedicated upright view of the abdomen or CT examination if there is continued clinical concern. 2. No acute cardiopulmonary disease Forrest Borges MD Abdomen/Pelvis CT 01/14/18 0823 Signed Impressions: Service Date/Time: Sunday, January 14, 2018 09:21 - CONCLUSION: Dilation of the proximal small bowel with apparent transition in the right midabdomen. In the appropriate clinical setting, findings are characteristic of a partial small bowel obstruction. Irineo Orozco MD Cardiovascular: Regular Lungs: Clear Abdomen: Non-distended, Other (lap sites c/d/i ), Post-op tenderness Extremities: No edema Narrative Exam NGT out A/P Assessment and Plan 52 year old female POD1 dx lap; lap GEOFF; lap appy -Start clear liquids -Okay for a few crackers with pain medication -IVF -OOB and mobilize -Adjusted pain medications -As bowel function returns will continue to advance diet Attending Note - Dr. Brunson Patient feels better since NG removed Abdomen soft Steri strips intact Mobilize patient Await return of bowel function The exam, history, and the medical decision-making described in the above note were completed with the assistance of the mid-level provider. I reviewed and agree with the findings presented. I attest that I had a [id number] encounter with the patient on the same day, and personally performed and documented my assessment and findings in the medical record. Sunshine TurkP/Mail Clerk CHECKING DEPARTMENT SUPERVISOR January 16, 2018 16:22 João Brunson MD January 17, 2018 12:15
[2018-01-16] MEDS: ONDANSETRON HCL 4 MG/2 ML VIAL IVP PRN (16:59)
[2018-01-16] MEDS: LORazepam 0.5 MG TAB PO PRN (22:21)
[2018-01-17] VITALS: BP 107/53; PULSE 77; RESP 17; TEMP 97.7; O2SAT 92
--- NOTE | 2018-01-17 00:11 | MP ---
cc: João Brunson MD DATE OF OPERATION: 01/15/2018 PROCEDURE: 1. Diagnostic laparoscopy. 2. Laparoscopic lysis of adhesions. 3. Laparoscopic appendectomy. PREOPERATIVE DIAGNOSIS: Small bowel obstruction. POSTOPERATIVE DIAGNOSIS: Small bowel obstruction secondary to adhesions, with adhesive process in the right lower quadrant near the appendix. ESTIMATED BLOOD LOSS: 10 mL FLUIDS: 1000 mL crystalloid. COMPLICATIONS: None. DRAINS: None. SPECIMENS: Appendix to pathology. PROCEDURE FINDINGS: A single adhesion causing the patient's bowel obstruction. Other adhesions near the ileocecal valve, likely from patient's previous vaginal hysterectomy. PROCEDURE IN DETAIL: The patient was taken to the operating room and placed on the operating table in the supine position. After an adequate level of general endotracheal anesthesia was achieved, the abdomen was prepped and draped in the usual fashion. A timeout was taken, confirming the correct patient, site, and procedures to be performed. A supraumbilical incision was made and a 5 mm trocar was used to enter the abdominal cavity under direct vision with low insufflation. The abdomen was then insufflated and a 30-degree 5 mm laparoscope was inserted. The abdomen was visualized. The patient was noted to have some slightly dilated proximal small bowel. Two additional 5 mm trocars were placed with the first in a suprapubic location. Careful running of the small bowel revealed an area of adhesions near the cecum and at the distal ileum near the ileocecal valve. A second 5 mm trocar was placed and entered the abdominal cavity under direct vision uneventfully in the right lower quadrant. The small bowel was run back from the ileocecal valve to the ligament of Treitz after freeing up near the ileocecal valve with sharp dissection. Dilated, injected small bowel was noted in the mid jejunum. A single adhesive band that had recently been released demonstrated normal bowel past this point. Careful examination of the right lower quadrant revealed further adhesions with a twist in the distal ileum. This was freed up with sharp dissection. As the adhesive process was adjacent to the appendix, there was concern that further processes in the future would potentially cause confusion. Thus, the appendix was dissected, with the mesoappendix divided with the Harmonic scalpel. A 0 PDS Endoloop was slipped over the appendix and cinched down at the base. The appendix was divided 1 cm distal to this with the Harmonic scalpel. The appendix was removed via the right lower quadrant 5 mm trocar site and passed off the table. The abdomen was revisualized and irrigation was used to remove all minimal bloody material. The small bowel was run once again from the ligament of Treitz to the ileocecal valve. No other adhesive bands were noted. No other abnormalities were noted in the abdomen, specifically no evidence of malignant process. When this was completed, insufflation was discontinued and the 5 mm right lower quadrant and infraumbilical midline trocars were removed under direct vision. No bleeding was noted from the trocar sites during desufflation. The supraumbilical trocar was then removed, as well. All 3 trocar sites were closed at the skin with 4-0 Vicryl in an interrupted buried fashion. All 3 trocar sites were dressed with Steri-Strips. The patient was extubated and taken back to the recovery room in stable condition. She tolerated the procedure well. MD REINALDO Modi/ARMANDO , 11:43 PM , 12:10 AM
[2018-01-17] MEDS ORDERED: ZOLPIDEM TARTRATE 5 MG TAB PO ONE (00:15)
--- NOTE | 2018-01-17 07:46 | HHI.PR ---
Subjective Remarks tolerating clears no BM yet but passing out lots of flatus Objective Vitals Vital Signs Date Time Temp Pulse Resp B/P (MAP) Pulse Ox O2 Delivery O2 Flow Rate FiO2 01/17/18 00:00 97.7 77 17 107/53 (71) 92 01/16/18 20:00 97.4 86 17 104/51 (68) 95 01/16/18 19:10 95 Nasal Cannula 2.00 01/16/18 16:00 98.2 81 19 111/53 (72) 95 01/16/18 12:00 98.2 84 18 116/59 (78) 94 01/16/18 08:00 98.2 84 19 122/61 (81) 96 I/O 01/16/18 01/16/18 01/16/18 01/17/18 01/17/18 01/17/18 07:00 15:00 23:00 07:00 15:00 23:00 Intake Total 928 ml 1240 ml Balance 928 ml 1240 ml Intake Oral 480 ml 240 ml IV Total 448 ml 1000 ml # Voids 8 1 Result Diagram: 01/15/18 1639 01/16/18 0815 Imaging Last Impressions Abdomen X-Ray 01/15/18 0600 Signed Impressions: Service Date/Time: Monday, January 15, 2018 05:38 - CONCLUSION: Normal examination. NG tube enters the stomach Charlie Haider MD Chest X-Ray 01/14/18822 Signed Impressions: Service Date/Time: Sunday, January 14, 2018 08:40 - CONCLUSION: 1. Increased lucency below the left hemidiaphragm may reflect air in the stomach. No definite free air on the right. Recommend dedicated upright view of the abdomen or CT examination if there is continued clinical concern. 2. No acute cardiopulmonary disease Forrest Borges MD Abdomen/Pelvis CT 01/14/18822 Signed Impressions: Service Date/Time: Sunday, January 14, 2018 09:21 - CONCLUSION: Dilation of the proximal small bowel with apparent transition in the right midabdomen. In the appropriate clinical setting, findings are characteristic of a partial small bowel obstruction. Irineo Orozco MD Objective Remarks awake and alert, no acute distress anicteric no rales, no wheezes regular rhythm abdomen- soft, slightly distended, + bowel sounds, sterile strips in place, extremities no edema neuro exam- non focal Procedures 01/15 Diagnostic laparoscopy Laparoscopic lysis of adhesions Laparoscopic appendectomy A/P Assessment and Plan 52 years old female S/P laparoscopic GEOFF 01/15 for SBO - diet per GS - general surgery service ff- - ff BMP Leukocytosis- Improved Likely reactive to above. History of Muscular dystrophy- highly functional and independent with all ADLs PTSD - IV Ativan as needed for anxiety and prior to procedures. Hyperglycemia Likely reactive. Incentive spirometry hourly encourage ambulation- out of bed Margaux Camilo MD January 17, 2018 07:46
[2018-01-17 08:00] VITALS: BP 106/52; PULSE 71; RESP 19; TEMP 98.1; O2SAT 94
[2018-01-17] MEDS: SODIUM CHLORIDE 0.9% FLUSH 10 ML FLUSH IV FLUSH SCH ×3 (08:26→22:15)
[2018-01-17] MEDS: DULoxetine HCl DR 60 MG CAP PO SCH (08:28)
[2018-01-17] MEDS: DOCUSATE SODIUM 50 MG/SENNA 8.6 MG TAB PO SCH ×2 (08:28→20:21)
[2018-01-17] MEDS: ACETAMINOPHEN/HYDROcodone 325 MG/5 MG TAB PO PRN ×2 (08:28→15:44)
[2018-01-17] MEDS: buPROPion HCL 150 MG SUSTAINED RELEASE TAB PO SCH (08:28)
[2018-01-17] MEDS: ESTRADIOL 1 MG TAB PO SCH ×2 (09:00→10:40)
[2018-01-17] MEDS: SODIUM CHLOR 0.9% 1000 ML INJ 1,000 ML IV SCH ×2 (09:08→19:08)
[2018-01-17] MEDS: PANTOPRAZOLE SODIUM 40 MG VIAL IV PUSH SCH (10:43)
--- NOTE | 2018-01-17 11:01 | HHI.PR ---
Subjective Subjective Notes Resting in bed Had a little trouble going to sleep last night but after Ambien had restful night sleep Objective Vitals/I&O Vital Signs Date Time Temp Pulse Resp B/P (MAP) Pulse Ox O2 Delivery O2 Flow Rate FiO2 01/17/18 08:00 98.1 71 19 106/52 (70) 94 01/16/18 19:10 Nasal Cannula 2.00 Radiology Last 48 hours Impressions Chest X-Ray 01/14/18822 Signed Impressions: Service Date/Time: Sunday, January 14, 2018 08:40 - CONCLUSION: 1. Increased lucency below the left hemidiaphragm may reflect air in the stomach. No definite free air on the right. Recommend dedicated upright view of the abdomen or CT examination if there is continued clinical concern. 2. No acute cardiopulmonary disease Forrest Borges MD Abdomen/Pelvis CT 01/14/18822 Signed Impressions: Service Date/Time: Sunday, January 14, 2018 09:21 - CONCLUSION: Dilation of the proximal small bowel with apparent transition in the right midabdomen. In the appropriate clinical setting, findings are characteristic of a partial small bowel obstruction. Irineo Orozco MD Cardiovascular: Regular Lungs: Clear Abdomen: Other (mildly distended; lap sites c/d/i ), Post-op tenderness Extremities: No edema A/P Assessment and Plan 52 year old female POD2 dx lap; lap GEOFF; lap appy -Continue clear liquids; encouraged sips -Okay for a few crackers with pain medication -IVF -OOB and mobilize---encouraged her to walk in the hallways multiple times daily -Pain control -As bowel function returns will continue to advance diet Attending Note - Dr. Brunson Slightly distended today; minimal flatus; no BM yet Wounds clean and dry As above; may need to stay until Friday 01/19 The exam, history, and the medical decision-making described in the above note were completed with the assistance of the mid-level provider. I reviewed and agree with the findings presented. I attest that I had a [id number] encounter with the patient on the same day, and personally performed and documented my assessment and findings in the medical record. Sunshine Turk/First Igor MARY January 17, 2018 11:01 João Brunson MD January 17, 2018 12:18
[2018-01-17 12:00] VITALS: BP 112/55; PULSE 78; RESP 18; TEMP 98.3; O2SAT 97
[2018-01-17] MEDS ORDERED: RESP: ALBUTEROL 2.5 MG/3 ML NEB (SCH) NEB ONE (14:00)
[2018-01-17] MEDS ORDERED: RESP: ALBUTEROL 2.5 MG/3 ML NEB (PRN) NEB (14:00)
[2018-01-17] MEDS: POTASSIUM CHLOR 20 MEQ PREMIX 100 ML IV SCH ×2 (15:44→16:00)
[2018-01-17] MEDS: LORazepam 0.5 MG TAB PO PRN (15:51)
[2018-01-17 16:00] VITALS: BP 138/65; PULSE 65; RESP 19; TEMP 98.5; O2SAT 98
[2018-01-17 16:09] VITALS: O2SAT 100
[2018-01-17 20:00] VITALS: BP 138/62; PULSE 83; RESP 17; TEMP 97.8; O2SAT 100
[2018-01-17] MEDS: ZOLPIDEM TARTRATE 5 MG TAB PO PRN (22:50)
[2018-01-18] VITALS: BP 119/62; PULSE 74; RESP 17; TEMP 97.6; O2SAT 99
[2018-01-18] MEDS: SODIUM CHLOR 0.9% 1000 ML INJ 1,000 ML IV SCH ×3 (05:40→22:29)
[2018-01-18 08:00] VITALS: BP_SYST 132; BP_SYST 138; BP_DIAS 60; BP_DIAS 75; PULSE 61; PULSE 72; RESP 16; TEMP 97.3; TEMP 98.4; O2SAT 98
[2018-01-18] MEDS: buPROPion HCL 150 MG SUSTAINED RELEASE TAB PO SCH (08:26)
[2018-01-18] MEDS: DULoxetine HCl DR 60 MG CAP PO SCH (08:26)
[2018-01-18] MEDS: PANTOPRAZOLE SOD 40 MG DELAYED RELEASE TAB PO SCH (08:26)
[2018-01-18] MEDS: DOCUSATE SODIUM 50 MG/SENNA 8.6 MG TAB PO SCH ×2 (08:26→22:20)
[2018-01-18] MEDS: ESTRADIOL 1 MG TAB PO SCH (08:26)
[2018-01-18] MEDS: ACETAMINOPHEN/HYDROcodone 325 MG/5 MG TAB PO PRN ×3 (08:32→22:29)
--- NOTE | 2018-01-18 08:53 | HHI.PR ---
Subjective Remarks having lower abdominal discomfort and feels "so full" taking fluids but feels full easily,gets nauseous, no vomiting passing flatus when sits on the toilet but when laying- - minimal she has been up and ambulating Objective Vitals Vital Signs Date Time Temp Pulse Resp B/P (MAP) Pulse Ox O2 Delivery O2 Flow Rate FiO2 01/18/18 00:00 97.6 74 17 119/62 (81) 99 01/17/18 20:00 97.8 83 17 138/62 (87) 100 01/17/18 16:09 100 21 01/17/18 16:00 98.5 65 19 138/65 (89) 98 01/17/18 12:00 98.3 78 18 112/55 (74) 97 I/O 01/17/18 01/17/18 01/17/18 01/18/18 01/18/18 01/18/18 07:00 15:00 23:00 07:00 15:00 23:00 Intake Total 1240 ml 1500 ml 740 ml Balance 1240 ml 1500 ml 740 ml Intake Oral 240 ml 1200 ml 240 ml IV Total 1000 ml 300 ml 500 ml # Voids 1 7 2 Result Diagram: 01/15/18 1639 01/16/18 0815 Imaging Last Impressions Abdomen X-Ray 01/15/18 0600 Signed Impressions: Service Date/Time: Monday, January 15, 2018 05:38 - CONCLUSION: Normal examination. NG tube enters the stomach Charlie Haider MD Chest X-Ray 01/14/18822 Signed Impressions: Service Date/Time: Sunday, January 14, 2018 08:40 - CONCLUSION: 1. Increased lucency below the left hemidiaphragm may reflect air in the stomach. No definite free air on the right. Recommend dedicated upright view of the abdomen or CT examination if there is continued clinical concern. 2. No acute cardiopulmonary disease Forrest Borges MD Abdomen/Pelvis CT 01/14/18822 Signed Impressions: Service Date/Time: Sunday, January 14, 2018 09:21 - CONCLUSION: Dilation of the proximal small bowel with apparent transition in the right midabdomen. In the appropriate clinical setting, findings are characteristic of a partial small bowel obstruction. Irineo Orozco MD Objective Remarks awake and alert, no acute distress anicteric lungs - clear regular rhythm abdomen- distended but very soft, + bowel sounds, sterile strips in place, mild tenderness on deep palpation of both lower quadrant area extremities no edema neuro exam- non focal Procedures 01/15 Diagnostic laparoscopy Laparoscopic lysis of adhesions Laparoscopic appendectomy A/P Assessment and Plan 52 years old female S/P laparoscopic GEOFF for SBO- 01/15 - + flatus, no BM yet , still with mild abdominal distention - GS ff Leukocytosis- Improved Likely reactive to above. History of Muscular dystrophy- highly functional and independent with all ADLs PTSD - IV Ativan as needed for anxiety and prior to procedures. Hyperglycemia Likely reactive. Incentive spirometry hourly encourage ambulation-- patient up and ambulating Margaux Camilo MD January 18, 2018 08:53
[2018-01-18] MEDS ORDERED: BISACODYL 10 MG SUPP RECTAL ONE (10:30)
--- NOTE | 2018-01-18 10:34 | HHI.PR ---
Subjective Subjective Notes Distended; flatus but no BM yet No appetite Objective Vitals/I&O Vital Signs Date Time Temp Pulse Resp B/P (MAP) Pulse Ox O2 Delivery O2 Flow Rate FiO2 01/18/18 08:00 98.4 72 16 132/60 (84) 98 01/17/18 16:09 21 01/16/18 19:10 Nasal Cannula 2.00 Radiology Last 48 hours Impressions Chest X-Ray 01/14/18822 Signed Impressions: Service Date/Time: Sunday, January 14, 2018 08:40 - CONCLUSION: 1. Increased lucency below the left hemidiaphragm may reflect air in the stomach. No definite free air on the right. Recommend dedicated upright view of the abdomen or CT examination if there is continued clinical concern. 2. No acute cardiopulmonary disease Forrest Borges MD Abdomen/Pelvis CT 01/14/18822 Signed Impressions: Service Date/Time: Sunday, January 14, 2018 09:21 - CONCLUSION: Dilation of the proximal small bowel with apparent transition in the right midabdomen. In the appropriate clinical setting, findings are characteristic of a partial small bowel obstruction. Irineo Orozco MD Lungs: Clear Abdomen: Other (distended) Narrative Exam Steri strips intact without drainage A/P Problem List: (1) Partial small bowel obstruction ICD Codes: K56.600 - Partial intestinal obstruction, unspecified as to cause Status: Acute Assessment and Plan 52 year old female POD3 dx lap; lap GEOFF; lap appy -Continue clear liquids; encouraged sips -Okay for a few crackers with pain medication -Continue IVF -OOB and mobilize---encouraged her to walk in the hallways multiple times daily -Pain control -As bowel function returns will continue to advance diet -Dulcolax suppository today -Check labs, specifically K+ João Brunson MD January 18, 2018 10:34
[2018-01-18 12:00] VITALS: BP 126/69; PULSE 62; RESP 18; TEMP 97.7; O2SAT 99
[2018-01-18 13:49] LABS: BICARBONATE 29.6 MEQ/L (21.0-32.0); CALCIUM 8.3 MG/DL (8.5-10.1); CREATININE 0.59 MG/DL (0.50-1.00)
[2018-01-18 16:00] VITALS: BP 139/65; PULSE 68; RESP 17; TEMP 97.8; O2SAT 100
[2018-01-18 20:00] VITALS: BP 151/65; PULSE 73; RESP 16; TEMP 97.7; O2SAT 91
[2018-01-18] MEDS: SODIUM CHLORIDE 0.9% FLUSH 10 ML FLUSH IV FLUSH SCH (21:00)
[2018-01-19] VITALS: BP 140/69; PULSE 65; RESP 18; TEMP 98.1; O2SAT 96
[2018-01-19] MEDS: LORazepam 0.5 MG TAB PO PRN ×3 (00:36→20:59)
[2018-01-19] MEDS: ZOLPIDEM TARTRATE 5 MG TAB PO PRN (01:26)
[2018-01-19] MEDS: SODIUM CHLOR 0.9% 1000 ML INJ 1,000 ML IV SCH ×3 (02:30→14:54)
[2018-01-19 08:00] VITALS: BP 136/86; PULSE 73; RESP 16; TEMP 97.6; O2SAT 99
--- NOTE | 2018-01-19 08:08 | HHI.PR ---
Subjective Remarks minimal abdominal pain no nausea or vomiting tolerated full liquids Objective Vitals Vital Signs Date Time Temp Pulse Resp B/P (MAP) Pulse Ox O2 Delivery O2 Flow Rate FiO2 01/19/18 00:00 98.1 65 18 140/69 (92) 96 01/18/18 23:29 18 01/18/18 22:57 Room Air 01/18/18 20:00 97.7 73 16 151/65 (93) 91 01/18/18 16:00 97.8 68 17 139/65 (89) 100 01/18/18 12:00 97.7 62 18 126/69 (88) 99 I/O 01/18/18 01/18/18 01/18/18 01/19/18 01/19/18 01/19/18 07:00 15:00 23:00 07:00 15:00 23:00 Intake Total 740 ml 4200 ml 1000 ml Balance 740 ml 4200 ml 1000 ml Intake Oral 240 ml 2000 ml IV Total 500 ml 2200 ml 1000 ml # Voids 2 11 # Bowel Movements 1 Result Diagram: 01/15/18 1639 01/18/18 1220 Objective Remarks awake and alert, no acute distress anicteric lungs - clear regular rhythm abdomen- distention improved, soft, good bowel sounds, nontender, sterile strips in place extremities no edema neuro exam- non focal Procedures 01/15 Diagnostic laparoscopy Laparoscopic lysis of adhesions Laparoscopic appendectomy A/P Assessment and Plan 52 years old female S/P laparoscopic GEOFF for SBO- 01/15 - + flatus, abdomen- distention much less - GS ff - advance diet - will defer to surgery - patient up and ambulating Leukocytosis- Improved Likely reactive to above. History of Muscular dystrophy- highly functional and independent with all ADLs PTSD - IV Ativan as needed for anxiety and prior to procedures. Hyperglycemia Likely reactive. Incentive spirometry hourly encourage ambulation-- patient up and ambulating DC if cleared with GS- possibly today or tomorrow Margaux Camilo MD January 19, 2018 08:08
[2018-01-19] MEDS: SODIUM CHLORIDE 0.9% FLUSH 10 ML FLUSH IV FLUSH SCH ×2 (08:20→20:48)
[2018-01-19] MEDS: buPROPion HCL 150 MG SUSTAINED RELEASE TAB PO SCH (09:17)
[2018-01-19] MEDS: DOCUSATE SODIUM 50 MG/SENNA 8.6 MG TAB PO SCH ×2 (09:17→20:47)
[2018-01-19] MEDS: ACETAMINOPHEN/HYDROcodone 325 MG/5 MG TAB PO PRN ×3 (09:17→20:48)
[2018-01-19] MEDS: DULoxetine HCl DR 60 MG CAP PO SCH (09:18)
[2018-01-19] MEDS: PANTOPRAZOLE SOD 40 MG DELAYED RELEASE TAB PO SCH (09:18)
[2018-01-19] MEDS: ESTRADIOL 1 MG TAB PO SCH (09:18)
[2018-01-19 12:00] VITALS: BP 149/75; PULSE 81; RESP 17; TEMP 98; O2SAT 96
--- NOTE | 2018-01-19 13:08 | HHI.PR ---
cc: Rick Garcia MD Subjective Subjective Notes DAILY PROGRESS NOTE FOR SURGICAL ATTENDING, DR. RICK GARCIA Patient walking in the room Think she has some gas pain Objective Vitals/I&O Vital Signs Date Time Temp Pulse Resp B/P (MAP) Pulse Ox O2 Delivery O2 Flow Rate FiO2 01/19/18 08:00 97.6 73 16 136/86 (103) 99 01/18/18 22:57 Room Air 01/17/18 16:09 21 01/16/18 19:10 2.00 Labs Laboratory Tests Test 01/14/18 08:30 01/14/18 10:30 01/15/18 16:39 01/18/18 12:20 Prothrombin Time 9.8 SEC Prothromb Time International Ratio 1.0 RATIO Activated Partial Thromboplast Time 25.8 SEC Lipase 158 U/L Urine Collection Type CLEAN CATCH Urine Color YELLOW Urine Turbidity CLEAR Urine pH 8.0 Urine Specific [place] 1.010 Urine Protein NEG mg/dL Urine Glucose (UA) NEG mg/dL Urine Ketones NEG mg/dL Urine Occult Blood TRACE Urine Nitrite NEG Urine Bilirubin NEG Urine Urobilinogen 0.2 MG/DL Urine Leukocyte Esterase NEG Urine RBC 0-3 /hpf Urine Squamous Epithelial Cells 0-5 /hpf Microscopic Urinalysis Comment CULT NOT INDICATED Urine Collection Time 10:30 White Blood Count 8.0 TH/MM3 Red Blood Count 3.73 MIL/MM3 Hemoglobin 11.7 GM/DL Hematocrit 34.2 % Mean Corpuscular Volume 91.9 FL Mean Corpuscular Hemoglobin 31.4 PG Mean Corpuscular Hemoglobin Concent 34.2 % Red Cell Distribution Width 14.0 % Platelet Count 166 TH/MM3 Mean Platelet Volume 8.3 FL Neutrophils (%) (Auto) 88.4 % Lymphocytes (%) (Auto) 8.1 % Monocytes (%) (Auto) 2.8 % Eosinophils (%) (Auto) 0.6 % Basophils (%) (Auto) 0.1 % Neutrophils # (Auto) 7.1 TH/MM3 Lymphocytes # (Auto) 0.6 TH/MM3 Monocytes # (Auto) 0.2 TH/MM3 Eosinophils # (Auto) 0.0 TH/MM3 Basophils # (Auto) 0.0 TH/MM3 CBC Comment DIFF FINAL Differential Comment Blood Urea Nitrogen 14 MG/DL 3 MG/DL Creatinine 0.55 MG/DL 0.59 MG/DL Random Glucose 94 MG/DL 85 MG/DL Total Protein 6.2 GM/DL Albumin 3.1 GM/DL Calcium Level 7.7 MG/DL 8.3 MG/DL Alkaline Phosphatase 76 U/L Aspartate Amino Transf (AST/SGOT) 20 U/L Alanine Aminotransferase (ALT/SGPT) 40 U/L Total Bilirubin 0.3 MG/DL Sodium Level 141 MEQ/L 143 MEQ/L Potassium Level 3.9 MEQ/L 3.7 MEQ/L Chloride Level 108 MEQ/L 108 MEQ/L Carbon Dioxide Level 26.3 MEQ/L 29.6 MEQ/L Anion Gap 5 MEQ/L Estimat Glomerular Filtration Rate 107 ML/MIN Radiology Last 48 hours Impressions Chest X-Ray 01/14/18 0877 Signed Impressions: Service Date/Time: Sunday, January 14, 2018 08:40 - CONCLUSION: 1. Increased lucency below the left hemidiaphragm may reflect air in the stomach. No definite free air on the right. Recommend dedicated upright view of the abdomen or CT examination if there is continued clinical concern. 2. No acute cardiopulmonary disease Forrest Borges MD Abdomen/Pelvis CT 01/14/18 0823 Signed Impressions: Service Date/Time: Sunday, January 14, 2018 09:21 - CONCLUSION: Dilation of the proximal small bowel with apparent transition in the right midabdomen. In the appropriate clinical setting, findings are characteristic of a partial small bowel obstruction. Irineo Orozco MD Cardiovascular: Regular Lungs: Clear Abdomen: Post-op tenderness Extremities: Perfused Wound Wound : Wound Location: Abdomen (Laparoscopic port sites) A/P Problem List: (1) Partial small bowel obstruction ICD Codes: K56.600 - Partial intestinal obstruction, unspecified as to cause Status: Acute Assessment and Plan 52 year old female POD3 dx lap; lap GEOFF; lap appy -Continue clear liquids; encouraged sips Advance to soft diet -Continue IVF -OOB and mobilize---encouraged her to walk in the hallways multiple times daily -Pain control -As bowel function returns will continue to advance diet -Dulcolax suppository today Attending Statement NOTE FOR SURGICAL ATTENDING, DR. RICK GARCIA I attest that I had a [id number] encounter with the patient on the same day, and personally performed and documented my assessment and findings in the medical record. The following services were provided during this hospital visit: Chart data review, vital sign assessments/reviewing monitor data Review of consultations notes if present. Medication orders/review and/or management Ordering and/or reviewing lab tests Ordering and/or interpreting/reviewing x-rays and/or diagnostic studies Care of the patient and discussion of the patient with the care team Documentation time To help prompt me to consider important information that might be impacting today's encounter and assessment, Information from prior notes written by myself or my colleagues may have been "brought forward/copy and pasted" into today's note. Rick Garcia MD January 19, 2018 13:08
[2018-01-19 16:00] VITALS: BP 138/68; PULSE 82; RESP 16; TEMP 97.6; O2SAT 98
[2018-01-19 20:00] VITALS: BP 127/61; PULSE 91; RESP 16; TEMP 97.6; O2SAT 99
[2018-01-19 20:42] VITALS: O2SAT 97
[2018-01-20] VITALS: BP 150/68; PULSE 65; RESP 16; TEMP 97.9; O2SAT 98
[2018-01-20] MEDS: SODIUM CHLOR 0.9% 1000 ML INJ 1,000 ML IV SCH ×2 (01:12→12:53)
[2018-01-20] MEDS: ZOLPIDEM TARTRATE 5 MG TAB PO PRN ×2 (01:32→22:41)
--- NOTE | 2018-01-20 07:25 | HHI.PR ---
Subjective Remarks has been up and ambulating tolerated regular diet overnight - "delicious food" no nausea/vomiting + flatus states no BM yet Objective Vitals Vital Signs Date Time Temp Pulse Resp B/P (MAP) Pulse Ox O2 Delivery O2 Flow Rate FiO2 01/20/18 00:00 97.9 65 16 150/68 (95) 98 01/19/18 20:42 97 21 01/19/18 20:00 97.6 91 16 127/61 (83) 99 01/19/18 20:00 Room Air 01/19/18 16:00 97.6 82 16 138/68 (91) 98 01/19/18 12:00 98.0 81 17 149/75 (99) 96 01/19/18 08:00 97.6 73 16 136/86 (103) 99 I/O 01/19/18 01/19/18 01/19/18 01/20/18 01/20/18 01/20/18 07:00 15:00 23:00 07:00 15:00 23:00 Intake Total 1000 ml 3420 ml 858 ml Balance 1000 ml 3420 ml 858 ml Intake Oral 1920 ml 240 ml IV Total 1000 ml 1500 ml 618 ml # Voids 4 3 # Bowel Movements 0 Result Diagram: 01/18/18 1220 Imaging Last Impressions Abdomen X-Ray 01/15/18 0600 Signed Impressions: Service Date/Time: Monday, January 15, 2018 05:38 - CONCLUSION: Normal examination. NG tube enters the stomach Charlie Haider MD Chest X-Ray 01/14/18822 Signed Impressions: Service Date/Time: Sunday, January 14, 2018 08:40 - CONCLUSION: 1. Increased lucency below the left hemidiaphragm may reflect air in the stomach. No definite free air on the right. Recommend dedicated upright view of the abdomen or CT examination if there is continued clinical concern. 2. No acute cardiopulmonary disease Forrest Borges MD Abdomen/Pelvis CT 01/14/18822 Signed Impressions: Service Date/Time: Sunday, January 14, 2018 09:21 - CONCLUSION: Dilation of the proximal small bowel with apparent transition in the right midabdomen. In the appropriate clinical setting, findings are characteristic of a partial small bowel obstruction. Irineo Orozco MD Objective Remarks awake and alert, no acute distress anicteric lungs - clear regular rhythm abdomen- soft, good bowel sounds, nontender, sterile strips in place, non tender extremities no edema neuro exam- non focal Procedures 01/15 Diagnostic laparoscopy Laparoscopic lysis of adhesions Laparoscopic appendectomy A/P Assessment and Plan 52 years old female S/P laparoscopic GEOFF for SBO- 01/15 - + flatus, - GS ff - tolerating regular diet - patient up and ambulating Leukocytosis- Improved Likely reactive to above. History of Muscular dystrophy- highly functional and independent with all ADLs PTSD - IV Ativan as needed for anxiety and prior to procedures. Hyperglycemia Likely reactive. Incentive spirometry hourly encourage ambulation-- patient up and ambulating multiple times a day DC planning- DC - GS ff- - if cleared aMrgaux Camilo MD January 20, 2018 07:25
[2018-01-20 08:00] VITALS: BP 138/66; PULSE 67; RESP 18; TEMP 98.4; O2SAT 97
[2018-01-20] MEDS: DULoxetine HCl DR 60 MG CAP PO SCH (08:54)
[2018-01-20] MEDS: DOCUSATE SODIUM 50 MG/SENNA 8.6 MG TAB PO SCH ×2 (08:54→20:47)
[2018-01-20] MEDS: PANTOPRAZOLE SOD 40 MG DELAYED RELEASE TAB PO SCH (08:54)
[2018-01-20] MEDS: buPROPion HCL 150 MG SUSTAINED RELEASE TAB PO SCH (08:54)
[2018-01-20] MEDS: ESTRADIOL 1 MG TAB PO SCH (08:55)
[2018-01-20] MEDS: SODIUM CHLORIDE 0.9% FLUSH 10 ML FLUSH IV FLUSH SCH ×2 (08:55→20:53)
[2018-01-20] MEDS: ACETAMINOPHEN/HYDROcodone 325 MG/5 MG TAB PO PRN ×3 (09:04→22:44)
[2018-01-20] MEDS: ENOXAPARIN SODIUM 40 MG/0.4 ML SYRINGE SQ SCH (09:05)
--- NOTE | 2018-01-20 10:21 | HHI.PR ---
Subjective Subjective Notes Resting in bed Has been walking hallways all weekend Had 1 BM over the weekend Objective Vitals/I&O Vital Signs Date Time Temp Pulse Resp B/P (MAP) Pulse Ox O2 Delivery O2 Flow Rate FiO2 01/20/18 08:00 98.4 67 18 138/66 (90) 97 01/19/18 20:42 21 01/19/18 20:00 Room Air 01/16/18 19:10 2.00 Radiology Last 48 hours Impressions Chest X-Ray 01/14/18822 Signed Impressions: Service Date/Time: Sunday, January 14, 2018 08:40 - CONCLUSION: 1. Increased lucency below the left hemidiaphragm may reflect air in the stomach. No definite free air on the right. Recommend dedicated upright view of the abdomen or CT examination if there is continued clinical concern. 2. No acute cardiopulmonary disease Forrest Borges MD Abdomen/Pelvis CT 01/14/18822 Signed Impressions: Service Date/Time: Sunday, January 14, 2018 09:21 - CONCLUSION: Dilation of the proximal small bowel with apparent transition in the right midabdomen. In the appropriate clinical setting, findings are characteristic of a partial small bowel obstruction. Irineo Orozco MD Cardiovascular: Regular Lungs: Clear Abdomen: Other (mildly distended; lap sites c/d/i ) Extremities: No edema A/P Problem List: (1) Partial small bowel obstruction ICD Codes: K56.600 - Partial intestinal obstruction, unspecified as to cause Status: Acute Assessment and Plan 52 year old female POD5 dx lap; lap GEOFF; lap appy -Regular soft diet -IVF---will wean as increased oral hydration -OOB and mobilize---encouraged her to walk in the hallways multiple times daily -Pain control -Lovenox Attending Note - Dr. Brunson Had another BM this afternoon; still distended, but less so Steristrips all dry and intact OK for discharge in AM F/U my office 01/23/18 The exam, history, and the medical decision-making described in the above note were completed with the assistance of the mid-level provider. I reviewed and agree with the findings presented. I attest that I had a [id number] encounter with the patient on the same day, and personally performed and documented my assessment and findings in the medical record. 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
[2018-01-20 10:27] VITALS: O2SAT 97
[2018-01-20 12:00] VITALS: BP 137/58; PULSE 87; RESP 17; TEMP 96.8; O2SAT 97
[2018-01-20 16:00] VITALS: BP 145/64; PULSE 92; RESP 16; TEMP 98.1; O2SAT 100
[2018-01-20 20:00] VITALS: BP 127/60; PULSE 64; RESP 18; TEMP 97.9; O2SAT 98
[2018-01-20] MEDS: LORazepam 0.5 MG TAB PO PRN (20:49)
[2018-01-20] MEDS: PSYLLIUM HUSK SF 3.4 GM in 5.8 GM PKT PO SCH (21:04)
[2018-01-21] VITALS: BP 144/66; PULSE 56; RESP 18; TEMP 97.7; O2SAT 98
[2018-01-21 08:00] VITALS: BP 130/59; PULSE 63; RESP 18; TEMP 97.8; O2SAT 95
--- NOTE | 2018-01-21 08:48 | HHI.PR ---
cc: João Brunson MD Subjective Subjective Notes Eating breakfast; doing well Ready to go home today Objective Vitals/I&O Vital Signs Date Time Temp Pulse Resp B/P (MAP) Pulse Ox O2 Delivery O2 Flow Rate FiO2 01/21/18 08:00 97.8 63 18 130/59 (82) 95 01/20/18 20:18 21 01/20/18 10:22 Room Air Radiology Last 48 hours Impressions Chest X-Ray 01/14/18822 Signed Impressions: Service Date/Time: Sunday, January 14, 2018 08:40 - CONCLUSION: 1. Increased lucency below the left hemidiaphragm may reflect air in the stomach. No definite free air on the right. Recommend dedicated upright view of the abdomen or CT examination if there is continued clinical concern. 2. No acute cardiopulmonary disease Forrest Borges MD Abdomen/Pelvis CT 01/14/18822 Signed Impressions: Service Date/Time: Sunday, January 14, 2018 09:21 - CONCLUSION: Dilation of the proximal small bowel with apparent transition in the right midabdomen. In the appropriate clinical setting, findings are characteristic of a partial small bowel obstruction. Irineo Orozco MD Cardiovascular: Regular Lungs: Clear Abdomen: Other (mildly distended; non tender; lap sites c/d/i ) Extremities: No edema A/P Problem List: (1) Partial small bowel obstruction ICD Codes: K56.600 - Partial intestinal obstruction, unspecified as to cause Status: Acute Assessment and Plan 52 year old female POD6 dx lap; lap GEOFF; lap appy -Regular soft diet -OOB and mobilize---encouraged her to walk in the hallways multiple times daily -Pain control -Lovenox -GS clear for DC -Okay to shower; pat incisions dry -Follow up January 23 at 11:30AM Sunshine Turk SPEECH PATHOLOGIST ASSISTANT/Phone Technician SPEECH PATHOLOGIST ASSISTANT January 21, 2018 08:48
[2018-01-21] MEDS ORDERED: HYDR-3516 PO (08:50)
[2018-01-21] MEDS: PANTOPRAZOLE SOD 40 MG DELAYED RELEASE TAB PO SCH (09:00)
[2018-01-21] MEDS: buPROPion HCL 150 MG SUSTAINED RELEASE TAB PO SCH (09:00)
[2018-01-21] MEDS: ESTRADIOL 1 MG TAB PO SCH (09:00)
[2018-01-21] MEDS: DULoxetine HCl DR 60 MG CAP PO SCH (09:00)
[2018-01-21] MEDS: DOCUSATE SODIUM 50 MG/SENNA 8.6 MG TAB PO SCH (09:00)
[2018-01-21] MEDS: ENOXAPARIN SODIUM 40 MG/0.4 ML SYRINGE SQ SCH (09:01)
[2018-01-21] MEDS: SODIUM CHLORIDE 0.9% FLUSH 10 ML FLUSH IV FLUSH SCH (09:01)
[2018-01-21] MEDS: PSYLLIUM HUSK SF 3.4 GM in 5.8 GM PKT PO SCH (09:01)
[2018-01-21] MEDS ORDERED: PERI PO (10:11)
--- NOTE | 2018-01-21 10:11 | HHI.DS ---
Discharge Summary Admission Date January 14, 2018 at 10:23 Discharge Date: January 21, 2018 Admitting Diagnosis partial small bowel obstruction (1) Partial small bowel obstruction ICD Code: K56.600 - Partial intestinal obstruction, unspecified as to cause Status: Acute Procedures 01/15 Diagnostic laparoscopy Laparoscopic lysis of adhesions Laparoscopic appendectomy Brief History - From Admission The patient is a 52-year-old female with a past medical history of muscular dystrophy, depression and PTSD who presents the emergency room with complaints of nausea, vomiting, diarrhea and abdominal pain. The patient reports that she began feeling poorly on Saturday. She reports that she initially had nausea with vomiting. Patient reports that yesterday she developed diarrhea. Patient reports that she has had multiple episodes of diarrhea all day. Patient reports that she has not been able to stop her nausea, vomiting or diarrhea. Patient reports that she is having severe abdominal pain. The pt says that the abdominal pain is generalized throughout her stomach. Patient denies any recent antibiotics. She says that she is visiting from [place]. She denies any sick contacts. The pt said she felt better for a little while but is currently gagging constantly. She requests to be "knocked out" if an NG tube is to be inserted. Discussed with nursing. CBC/BMP: 01/18/18 1220 Significant Findings Laboratory Tests Test 01/18/18 12:20 Blood Urea Nitrogen 3 MG/DL (7-18) Calcium Level 8.3 MG/DL (8.5-10.1) Chloride Level 108 MEQ/L (98-107) Imaging Last Impressions Abdomen X-Ray 01/15/18 0600 Signed Impressions: Service Date/Time: Monday, January 15, 2018 05:38 - CONCLUSION: Normal examination. NG tube enters the stomach Charlie Haider MD Chest X-Ray 01/14/18 0823 Signed Impressions: Service Date/Time: Sunday, January 14, 2018 08:40 - CONCLUSION: 1. Increased lucency below the left hemidiaphragm may reflect air in the stomach. No definite free air on the right. Recommend dedicated upright view of the abdomen or CT examination if there is continued clinical concern. 2. No acute cardiopulmonary disease Forrest Borges MD Abdomen/Pelvis CT 01/14/18 0823 Signed Impressions: Service Date/Time: Sunday, January 14, 2018 09:21 - CONCLUSION: Dilation of the proximal small bowel with apparent transition in the right midabdomen. In the appropriate clinical setting, findings are characteristic of a partial small bowel obstruction. Irineo Orozco MD PE at Discharge awake and alert, no acute distress anicteric lungs - clear regular rhythm abdomen- soft, good bowel sounds, nontender, sterile strips in place, non tender extremities no edema neuro exam- non focal Pt update on day of discharge Pt feeling much better. +flatus. pain well controlled. Happy to go home. Has appt w GS for this coming . No nausea or vomiting, no CP/SOB Hospital Course 52 years old female S/P laparoscopic GEOFF for SBO- 01/15 - + flatus, - GS following and has cleared the pt for discharged. Appt scheduled for January 23 at 11:30AM - tolerating regular diet- soft - patient up and ambulating Pt Condition on Discharge: Stable Discharge Disposition: Discharge Home Discharge Time: > 30 minutes Discharge Instructions DIET: Follow Instructions for: As Tolerated, No Restrictions Speech Therapy-Diet Recommends: Soft Activities you can perform: See Additionl Instruction Other Activity Instructions: per GS recs Follow up Referrals: PCP Follow-up - 1 Week Surgical - 01/23/18 with João Brunson MD Appt set for January 23 at 11:30AM New Medications: Hydrocodone/Acetaminophen (Hydrocodone-Acetamin 5-325 mg) 5 Mg-325 Mg Tablet 1 TAB PO Q4H for Pain Management, #25 TAB Sennosides-Docusate Sodium (Gnp Senna Plus 8.6-50 mg) 8.6 Mg-50 Mg Tab 1 TAB PO BID for Constipation, #30 TAB Continued Medications: Bupropion HCl ER 24 HR (Wellbutrin Xl 24 HR) 150 Mg Tab 150 MG PO DAILY for Control Depression, TAB 0 Refills Cyclobenzaprine (Flexeril) 5 Mg Tab 5 MG PO BID PRN for MUSCLE SPASM, #90 TAB [address] (Duloxetine DR) 60 Mg Capdr 60 MG PO DAILY, #30 CAP 0 Refills Estradiol (Estradiol) 1 Mg Tab 2 MG PO DAILY for Estrogen Supplements, #30 TAB 0 Refills Prazosin (Prazosin) 2 Mg Cap 2 MG PO HS PRN for SLEEP, #60 CAP 0 Refills Discontinued Medications: Meloxicam (Meloxicam) 7.5 Mg Tab 7.5 MG PO DAILY PRN for PAIN SCALE 5 TO 10, TAB 0 Refills Ashley Durán MD January 21, 2018 10:11
[2018-01-21] MEDS ORDERED: AMBI5TAB PO (11:06)
== END 2018-01-21 13:11 | disposition home or self-care (01) | DRG 336 ==
LOC: PHED 08:06 → PHEDA 10:23 → PH3A 11:20 → N07A 21:25
PROVIDERS: ADMIT Hospitalist; ATTEND Hospitalist
PROC: 0DTJ4ZZ Resection of Appendix, Percutaneous Endoscopic Approach (ICD-10-PCS; 2018-01-15)
PROC: 0DNB4ZZ Release Ileum, Percutaneous Endoscopic Approach (ICD-10-PCS; principal; 2018-01-15 13:40)
DX: K56.51 Intestinal adhesions [bands], with partial obstruction (principal); G71.0 Muscular dystrophy; D72.829 Elevated white blood cell count, unspecified; R73.9 Hyperglycemia, unspecified; F32.9 Major depressive disorder, single episode, unspecified; F43.10 Post-traumatic stress disorder, unspecified; Z86.010 Personal history of colon polyps; Z88.6 Allergy status to analgesic agent; Z90.710 Acquired absence of both cervix and uterus; Z91.410 Personal history of adult physical and sexual abuse
CPT/HCPCS: 71045; 74018; 74177; 80048; 80053; 81001; 82948; 83690; 85025; 85610; 85730; 88304; 93005; 96361; 96374; 96375; C9113; J0690; J1100; J1170; J1650; J1885; J2060; J2250; J2270; J2370; J2405; J2765; J3010; J3480; J7030; J7120; Q9967